=== PATIENT | female | born 2000 | race Caucasian/White ===

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

== ENCOUNTER 2019-04-25 02:09 | Inpatient (IN) | payer OTHER ==
--- NOTE | 2019-04-25 02:13 | PDOC ---
History of Present Illness - General Chief Complaint: Respiratory Distress Stated Complaint: SHORTNESS OF BREATH History Source: Patient Exam Limitations: No Limitations - History of Present Illness Initial Comments: 04/25/19 02:28 Sheela Valdez is a 18yF w PMHx anemia presenting w SOB. Has had dry cough, nasal congestion for last 3 weeks, and post-tussive emesis/SOB for last 5 days. Seen 5d ago at [facility] for SOB, diagnosed w strep, d/c home w amoxicillin prescription. OTC robitussin, family member's albuterol did not improve symptoms. Denies fever, AB pain, urinary/ bowel movement changes. Has never been diagnosed w asthma or hospitalized for SOB even though everyone in family has asthma, recent sick bronchitis contacts Past History - Past Medical History Allergies/Adverse Reactions: Allergies Allergy/AdvReac Type Severity Reaction Status Date / Time No Known Allergies Allergy Verified 04/25/19 02:23 Home Medications: Ambulatory Orders NK [No Known Home Medication] 02/22/18 Anemia: Yes COPD: No Thyroid Disease: No - Reproductive History (#): 1 - Immunization History Td Vaccination: Yes Immunization Up to Date: Yes - Psycho Social/Smoking Cessation Hx Smoking Status: No Smoking History: Never smoked Have you smoked in the past 12 months: No Number of Cigarettes Smoked Daily: 0 Cigars Per Day: 0 Hx Alcohol Use: No Drug/Substance Use Hx: No Substance Use Type: None Hx Substance Use Treatment: No Review of Systems - Review of Systems Constitutional: No: Chills, Fever HEENTM: Yes: Nose Congestion. No: Eye Pain, Nose Pain, Throat Pain, Mouth Pain Respiratory: Yes: Cough, Shortness of Breath Cardiac (ROS): No: Chest Pain, Palpitations, Syncope ABD/GI: Yes: Nausea, Vomiting. No: Abdominal Distended, Constipated, Diarrhea : No: Burning, Dysuria, Discharge, Flank Pain, Hematuria Musculoskeletal: No: Back Pain, Joint Pain Integumentary: No: Bruising, Flushing, Lesions Neurological: No: Headache, Seizure, Tingling, Tremors Psychiatric: No: Anxiety, Depression, Stressors Endocrine: No: Excessive Sweating, Flushing, Intolerance to Cold, Intolerance to Heat Hematologic/Lymphatic: No: Anemia, Blood Clots *Physical Exam - Physical Exam General Appearance: Yes: Nourished, Appropriately Dressed, Moderate Distress HEENT: positive: EOMI, ROSALES, Normal Voice, Nasal Congestion, Rhinorrhea, Hearing Grossly Normal. negative: Scleral Icterus (R), Scleral Icterus (L) Respiratory/Chest: positive: Decreased Breath Sounds (sorin), Wheezing (sorin). negative: Chest Tender, Crackles, Rales, Rhonchi, Stridor Cardiovascular: positive: Regular Rhythm, S1, S2, Tachycardia. negative: Edema , Murmur Gastrointestinal/Abdominal: positive: Normal Bowel Sounds, Flat, Soft. negative : Tender, Organomegaly Extremity: positive: Normal Capillary Refill Integumentary: positive: Normal Color. negative: Rash, Swelling Neurologic: positive: Fully Oriented, Alert, Normal Response, Responsive. negative: Sensory Deficit, Confused, Disoriented ED Treatment Course - LABORATORY CBC & Chemistry Diagram: 04/25/19 02:30 04/25/19 02:30 Medical Decision Making - Medical Decision Making 04/25/19 02:26 CBC CMP HCG CXR CXR shows RLL consolidation, sorin basilar infiltrates concerning for pneumonia tylenol, duonebx3, Mg, azithromycin, rocephin WBC 12, neg HCG --- Sheela Valdez is a 18yF w PMHx anemia presenting w 5d SOB and cough concerning for asthma exacerbation (wheezing) and pneumonia seen on CXR. Not . Given tylenol, duonebx3, Mg, azithromycin, rocephin Admitted med/surg Dr Cohn for asthma exacerbation and pneumonia causing SOB, cough with minimal response to ED medication Discharge - Discharge Information Problems reviewed: Yes Clinical Impression/Diagnosis: Asthma exacerbation Qualifiers: Asthma severity: moderate Asthma persistence: unspecified Qualified Code(s): J45.901 - Unspecified asthma with (acute) exacerbation Pneumonia Qualifiers: Pneumonia type: due to unspecified organism Laterality: right Lung location: lower lobe of lung Qualified Code(s): J18.1 - Lobar pneumonia, unspecified organism Condition: Improved - Follow up/Referral - Patient Discharge Instructions - Post Discharge Activity
[2019-04-25] MEDS ORDERED: methylPREDNISolone NA SUCC 125 MG/2 ML VIAL IVPUSH ONE (02:22)
[2019-04-25] MEDS ORDERED: ALBUTEROL SO4 2.5/IPRATROPIUM 0.5 INH SOL 3 ML VIAL.NEB. NEB ONE ×4 (02:22→07:21)
[2019-04-25] MEDS ORDERED: methylPREDNISolone NA SUCC 125 MG/2 ML VIAL ONE (02:25)
[2019-04-25] MEDS ORDERED: CEFTRIAXONE 1 GM in DEXTROSE 5%-WATER - 50 ML IVPB ONE (02:28)
[2019-04-25] MEDS ORDERED: AZITHROMYCIN IVPB 500 MG in DEXTROSE 5%-WATER - 250 ML IVPB ONE (02:28)
[2019-04-25 02:35] LABS: BASO % 0.5 % (0-2.0); EOS % 1.7 % (0-4.5); HEMATOCRIT 39.3 % (32.4-45.2); HEMOGLOBIN 13.1 GM/dL (10.7-15.3); LYMPH % 35.7 % (8-40); MCH 30.2 pg (25.7-33.7); MCHC 33.2 g/dl (32.0-36.0); MEAN CELL VOLUME 91.1 fl (80-96); MEAN PLT VOLUME 7.2 fl (7.5-11.1); NEUT % 54.1 % (42.8-82.8); PLATELET COUNT 322 K/MM3 (134-434); RBC 4.32 M/mm3 (3.60-5.2); RDW 13.1 % (11.6-15.6); WHITE BLOOD COUNT 12.6 K/mm3 (4.0-10.0)
[2019-04-25] MEDS ORDERED: AZITHROMYCIN IVPB 500 MG/250 ML BAG IVPB ONE (02:37)
[2019-04-25] MEDS ORDERED: CEFTRIAXONE 1 GM/50 ML BAG ONE (02:37)
[2019-04-25] MEDS ORDERED: MAGNESIUM SULF 50% (8.12 MEQ/2 ML-1 GM VIAL) IVPB ONE (03:02)
[2019-04-25 03:05] LABS: ALBUMIN 4.1 g/dl (3.4-5.0); BILIRUBIN,TOTAL 0.2 mg/dL (0.2-1); BLOOD UREA NITROGEN 13.1 mg/dL (7-18); CREATININE 0.8 mg/dL (0.55-1.3); POTASSIUM 3.8 mmol/L (3.5-5.1); TOT PROT 7.8 g/dl (6.4-8.2)
[2019-04-25] MEDS ORDERED: MAGNESIUM SULF 50% (8.12 MEQ/2 ML-1 GM VIAL) ONE (03:06)
[2019-04-25] MEDS ORDERED: guaiFENesin/CODEINE 10 ML UNIT-DOSE CUPS PO ONE (03:17)
[2019-04-25] MEDS ORDERED: guaiFENesin/CODEINE 5 ML UNIT-DOSE CUPS PO ONE (03:26)
[2019-04-25] MEDS ORDERED: RACEPINEPHRINE IH SOL 2.25% 11.25 MG/0.5 ML VIAL IH ONE (03:26)
--- NOTE | 2019-04-25 03:29 | PDOC ---
Attending Attestation - Resident Resident Name: Arnulfo Valadez - ED Attending Attestation I have performed the following: I have examined & evaluated the patient, The case was reviewed & discussed with the resident, I agree w/resident's findings & plan - HPI HPI: 04/25/19 03:27 Pt comes with cough intractable; chest wall pain; inability to breathe esily; bronchitis that pt's mom have to pt's son, and now she has the same. Pt will be admitted to the hospital. She looks unwell and she has wheeze throughout the right lug and patchy on left. - Physicial Exam PE: 04/25/19 03:28 Pt has wheeze throughout lungs Febrile Pt looks unwell and Chest wall muscle painexhausted. - Medical Decision Making 04/25/19 03:29 Admit patient after CXR 04/25/19 05:11 She received abx and meds for cough and for wheeze. nebs, racemic epi, robitussin AC, etc etc.
[2019-04-25] MEDS ORDERED: RACEPINEPHRINE IH SOL 2.25% 11.25 MG/0.5 ML VIAL NEB ONE (04:12)
[2019-04-25] MEDS ORDERED: diphenhydrAMINE HCL 25 MG CAPSULE (FP) PO ONE ×2 (05:09→05:10)
[2019-04-25] MEDS ORDERED: ALBUTEROL SO4 0.083% IH SOL 2.5 MG/3 ML VIAL.NEB. NEB PRN (06:16)
--- NOTE | 2019-04-25 06:16 | PN ---
Teaching Attending Note Name of Resident: Breanne Goldstein ATTENDING PHYSICIAN STATEMENT I saw and evaluated the patient. I reviewed the resident's note and discussed the case with the resident. I agree with the resident's findings and plan as documented. SUBJECTIVE: 18-year-old woman complained of 3 weeks of increasing shortness of breath, chest tightness, which started spontaneously. She denied any significant fevers However mentioned that her child is sick. Her and mother smoke and she is around them at times. Patient mentions that several family members have been diagnosed with asthma. She was seen at [facility] on and was suspected to have strep throat and given a course of Augmentin which she said she has been taking. OBJECTIVE: Last Vital Signs Temp Pulse Resp BP Pulse Ox 98.3 F 100 H 20 113/76 100 04/25/19 02:20 04/25/19 05:21 04/25/19 02:20 04/25/19 05:21 04/25/19 05:21 GENERAL: Well developed, well nourished. Awake and alert. No acute distress, speaks in full sentences HEENT: Normocephalic, atraumatic. PERRLA, EOMI. No conjunctival pallor. Sclera are non- icteric. Moist mucous membranes. Oropharynx is clear. NECK: Supple. Full ROM. No JVD. Carotid pulses 2+ and symmetric, without bruits. No thyromegaly. No lymphadenopathy. CARDIOVASCULAR: taCHY. No murmurs, rubs, or gallops. Distal pulses are 2+ and symmetric. PULMONARY: + respiratory distress. b/l diffuse wheezing ABDOMINAL: Soft. Non-tender. Non-distended. No rebound or guarding. No organomegaly. Normoactive bowel sounds. MUSCULOSKELETAL Normal range of motion at all joints. No bony deformities or tenderness. No CVA tenderness. EXTREMITIES: No cyanosis. No clubbing. No edema. No calf tenderness. SKIN: Warm and dry. Normal capillary refill. No rashes. No jaundice. PSYCHIATRIC: Cooperative. Good eye contact. Appropriate mood and affect. Abnormal Lab Results 04/25/19 04/25/19 02:30 02:30 WBC 12.6 H MPV 7.2 L Random Glucose 120 H AST 14 L Imaging reviewed ASSESSMENT AND PLAN: 18-year-old woman with newly diagnosed asthma. Shortness of breath, coughing, wheezing, chest tightness all support clinical diagnosis.Her current attack might have been caused by a URI or pharyngitis or exposure to tobacco smoke by her family member.Counseled patient on nature of asthma and avoidance of specific exacerbating factors. She had blood gas which did not show any CO2 retention. She demonstrated some improvement to systemic steroids and bronchodilators and is stable for admission to [facility]. Admit to [facility] ekg Methylprednisolone 40mg IV every 6 hours Protonix 40 mg daily while on systemic steroids for GI prophylaxis Bronchodilators every 4 hours Azithromycin 5-day course Antitussives visual educator Would start on inhaled corticosteroid while inpatient Pulmonary evaluation Peak flow monitoring Outpatient pulmonary function test referral DVT prophylaxis with SCDs
[2019-04-25] MEDS ORDERED: PROCHLORPERAZINE INJECTION 10 MG/2 ML VIAL IVPB PRN (06:22)
[2019-04-25] MEDS ORDERED: ALBUTEROL SO4 2.5/IPRATROPIUM 0.5 INH SOL 3 ML VIAL.NEB. NEB PRN (06:27)
--- NOTE | 2019-04-25 06:31 | HP ---
CHIEF COMPLAINT: SOB PCP: unnknown HISTORY OF PRESENT ILLNESS: 18 y/o F with PMH of anemia presented to the ED because of SOB. Per Patient, she has been having difficulty breathing for the past 3 weeks since she caught a cold from her mother and son who were recently sick with Bronchitis and PNA. When SOB did not improve, she went to [facility] where they diagnosed her with PNA and discharged her on a course of augmentin (was scheduled to take last dose friday). Pt also have been experiencing nausea accompanied by NBNB vomiting consistently with food then eventually on empty stomach for the last 3 days. Pt also complaind of a pressure like chest pain, non radiating and intermittent in nature rating 8/10 in severity. Codeine temporarely relieved the pain but deep inspiration makes it worse and induces cough spells. Pt recently visited [place] a few weeks ago. ER course was notable for: (1)CBC remarkable for leukocytosis, BMP (2)EKG, CXR (3) course of solumedrol, duonebs, mgso4, epi, rocephin and azythro Recent Travel: [place] PAST MEDICAL HISTORY: as above PAST SURGICAL HISTORY: C section FAMILY HISTORY: immediate family has asthma including son Social History: second hand smoke Smoking: baby juan carlos smokes heavily. Alcohol: denies Drugs: denies Allergies No Known Allergies Allergy (Verified 04/25/19 02:23) HOME MEDICATIONS: Home Medications Medication Instructions Recorded NK [No Known Home Medication] 02/22/18 REVIEW OF SYSTEMS CONSTITUTIONAL: loss of appetite Absent: fever, chills, diaphoresis, generalized weakness, malaise, weight change HEENT: nasal congestion Absent: rhinorrhea , throat pain, throat swelling, difficulty swallowing, mouth swelling, ear pain, eye pain, visual changes CARDIOVASCULAR: chest pain Absent: syncope, palpitations, irregular heart rate, lightheadedness, peripheral edema RESPIRATORY: cough, shortness of breath,wheezing Absent: dyspnea with exertion, orthopnea, stridor, hemoptysis GASTROINTESTINAL:nausea, vomiting Absent: abdominal pain, abdominal distension , diarrhea, constipation, melena, hematochezia GENITOURINARY: Absent: dysuria, frequency, urgency, hesitancy, hematuria, flank pain, genital pain MUSCULOSKELETAL: Absent: myalgia, arthralgia, joint swelling, back pain, neck pain SKIN: Absent: rash, itching, pallor HEMATOLOGIC/IMMUNOLOGIC: Absent: easy bleeding, easy bruising, lymphadenopathy, frequent infections ENDOCRINE: Absent: unexplained weight gain, unexplained weight loss, heat intolerance, cold intolerance NEUROLOGIC: Absent: headache, focal weakness or paresthesias, dizziness, unsteady gait, seizure, mental status changes, bladder or bowel incontinence PSYCHIATRIC: Absent: anxiety, depression, suicidal or homicidal ideation, hallucinations. PHYSICAL EXAMINATION Vital Signs - 24 hr 04/25/19 04/25/19 04/25/19 02:20 03:02 04:18 Temperature 98.3 F Pulse Rate 112 H Pulse Rate [ Radial] Respiratory 20 Rate Blood Pressure 127/81 Blood Pressure [Left Arm] O2 Sat by Pulse 100 100 100 Oximetry (%) 04/25/19 05:21 Temperature Pulse Rate Pulse Rate [ 100 H Radial] Respiratory Rate Blood Pressure Blood Pressure 113/76 [Left Arm] O2 Sat by Pulse 100 Oximetry (%) GENERAL: Awake, alert, and fully oriented, in mod distress. HEAD: Normal with no signs of trauma. EYES: Pupils equal, round and reactive to light, extraocular movements intact, sclera anicteric, conjunctiva clear. No lid lag. EARS, NOSE, THROAT: nares patent but boggy from congestion, oropharynx clear without exudates. Moist mucous membranes. NECK: Normal range of motion, supple without lymphadenopathy, JVD, or masses. LUNGS: Breath sounds equal, clear to auscultation bilaterally. diffuse wheezes, and no crackles. No accessory muscle use. HEART: Regular rate and rhythm, normal S1 and S2 without murmur, rub or gallop. ABDOMEN: Soft, nontender, not distended, normoactive bowel sounds, no guarding, no rebound, no masses. No hepatomegaly or splenomegaly. MUSCULOSKELETAL: Normal range of motion at all joints. No bony deformities or tenderness. No CVA tenderness. UPPER EXTREMITIES: 2+ pulses, warm, well-perfused. No cyanosis. No clubbing. No peripheral edema. LOWER EXTREMITIES: 2+ pulses, warm, well-perfused. No calf tenderness. No peripheral edema. PSYCHIATRIC: Cooperative. Good eye contact. Appropriate mood and affect. SKIN: Warm, dry, normal turgor, no rashes or lesions noted, normal capillary refill. Laboratory Results - last 24 hr 04/25/19 04/25/19 04/25/19 02:30 02:30 02:30 WBC 12.6 H RBC 4.32 Hgb 13.1 Hct 39.3 MCV 91.1 MCH 30.2 MCHC 33.2 RDW 13.1 Plt Count 322 MPV 7.2 L Absolute Neuts (auto) 6.8 Neutrophils % 54.1 D Lymphocytes % 35.7 D Monocytes % 8.0 D Eosinophils % 1.7 D Basophils % 0.5 Nucleated RBC % 0 Sodium 141 Potassium 3.8 Chloride 107 Carbon Dioxide 23 Anion Gap 11 BUN 13.1 Creatinine 0.8 Est GFR (CKD-EPI)AfAm 123.87 Est GFR (CKD-EPI)NonAf 106.88 Random Glucose 120 H Calcium 9.0 Total Bilirubin 0.2 AST 14 L ALT 15 Alkaline Phosphatase 106 Total Protein 7.8 Albumin 4.1 Serum , Qual Negative ASSESSMENT/PLAN: 18 y/o F with PMH of anemia presented to the ED because of SOB admitted for acute asthma with exacerbation. Asthma exacerbation 2/2 recent URI solumedrol 40 Q6H. protonix 40 daily to prevent steroid induced stress ulcers duonebs Q4H oxygen NC 2L albuterol PRN zithromax pack compazine for nausea and vomiting. pending EKG flu swab Peak flow ordered respiratory therapist will obtain and document for interval changes. will educate pt about inhaler use; will add Qvair once done. also educated the pt about asthma, second hand smokes as additional culprit Anemia Hb 13.1 stable monitor DVT SCDs. pt young and ambulatory Visit type - Emergency Visit Emergency Visit: Yes ED Registration Date: 04/25/19 Care time: The patient presented to the Emergency Department on the above date and was hospitalized for further evaluation of their emergent condition. - New Patient This patient is new to me today: Yes Date on this admission: 04/25/19 - Critical Care Critical Care patient: No ATTENDING PHYSICIAN STATEMENT I saw and evaluated the patient. I reviewed the resident's note and discussed the case with the resident. I agree with the resident's findings and plan as documented. SUBJECTIVE: OBJECTIVE: ASSESSMENT AND PLAN:
[2019-04-25] MEDS ORDERED: methylPREDNISolone NA SUCC 40 MG/1 ML VIAL ONE (06:45)
[2019-04-25] MEDS: methylPREDNISolone NA SUCC 40 MG/1 ML VIAL IVPUSH SCH ×4 (06:53→20:38)
[2019-04-25] MEDS ORDERED: IBUPROFEN 400 MG TABLET (FP) PO ONE ×2 (07:42→07:46)
[2019-04-25] MEDS ORDERED: PANTOPRAZOLE SODIUM 40 MG VIAL IVPUSH SCH (10:00)
--- NOTE | 2019-04-25 10:38 | EKG ---
Test Reason : Blood Pressure : / mmHG Vent. Rate : 107 BPM Atrial Rate : 107 BPM P-R Int : 144 ms QRS Dur : 084 ms QT Int : 340 ms P-R-T Axes : 063 048 032 degrees QTc Int : 453 ms SINUS TACHYCARDIA OTHERWISE NORMAL ECG NO PREVIOUS ECGS AVAILABLE Confirmed by MD ANASTACIA, FRANCES ([id number]) on 04/25/2019 10:38:03 AM Referred By: Confirmed By:FRANCES GALAVIZ MD
--- NOTE | 2019-04-25 10:52 | PN ---
Physical Exam: SUBJECTIVE: Patient seen and examined at the bedside. feels better, but feels as though she is not getting enough air. assured her we will put her on 2 liters of nasal cannula. OBJECTIVE: apply 2 liters on nc and monitor oxygen status pulmonary consult scheduled duonebs incentive spirometer negative d dimer imaging: chest xray: limited assessment of lungs 2/2 to poor inspiratory effort. Patient is a 18 year old female with a past medical hx of anemia presented to the ED on 04/25/19 secondary to shortness of breath. She began to have shortness of breath for past 3 weeks and reports sick contacts at home. She was seen at [facility] and was diagnosed with pneumonia and was d/c on augmentin. She reports compliance with the augmentin. Pt also complained of a pressure like chest pain with coughing, non-radiating and intermittent, codeine temporarily relieved the pain but deep inspiration makes it worse and induces cough spells. Pt recently visited [place] a few weeks ago. Vital Signs Period Temp Pulse Resp BP Sys/Crowder Pulse Ox Last 24 Hr 98.3 F 100-120 20-20 113-127/76-89 97-100 GENERAL: The patient is awake, alert, and fully oriented, in no acute distress. HEAD: Normal with no signs of trauma. EYES: PERRL, extraocular movements intact, sclera anicteric, conjunctiva clear. No ptosis. ENT: Ears normal, nares patent, oropharynx clear without exudates, moist mucous membranes. NECK: Trachea midline, full range of motion, supple. LUNGS: expiratory wheezing, congestion. tolerating room air with stable oxygen , but feels short of breath, will apply oxygen, spirometer. re-image HEART: Regular rate and rhythm ABDOMEN: Soft, nontender, nondistended, normoactive bowel sounds, no guarding, no rebound, no hepatosplenomegaly, no masses. NEUROLOGICAL: Normal speech, gait not observed. PSYCH: Normal mood, normal affect. SKIN: Warm, dry, normal turgor, no rashes or lesions noted Laboratory Results - last 24 hr 04/25/19 04/25/19 04/25/19 02:30 02:30 02:30 WBC 12.6 H RBC 4.32 Hgb 13.1 Hct 39.3 MCV 91.1 MCH 30.2 MCHC 33.2 RDW 13.1 Plt Count 322 MPV 7.2 L Absolute Neuts (auto) 6.8 Neutrophils % 54.1 D Lymphocytes % 35.7 D Monocytes % 8.0 D Eosinophils % 1.7 D Basophils % 0.5 Nucleated RBC % 0 Sodium 141 Potassium 3.8 Chloride 107 Carbon Dioxide 23 Anion Gap 11 BUN 13.1 Creatinine 0.8 Est GFR (CKD-EPI)AfAm 123.87 Est GFR (CKD-EPI)NonAf 106.88 Random Glucose 120 H Calcium 9.0 Total Bilirubin 0.2 AST 14 L ALT 15 Alkaline Phosphatase 106 Total Protein 7.8 Albumin 4.1 Serum , Qual Negative Active Medications Generic Name Dose Route Start Last Admin Trade Name Freq PRN Reason Stop Dose Admin Albuterol Sulfate 1 amp 04/25/19 06:16 Ventolin 0.083% Nebulizer Soln - NEB Q6H PRN SHORT OF BREATH/WHEEZING Albuterol/Ipratropium 1 amp 04/25/19 06:27 04/25/19 07:25 Duoneb - NEB 1 amp Q4H PRN Administration SHORTNESS OF BREATH Azithromycin 250 mg 04/26/19 10:00 Zithromax - PO 04/29/19 10:01 DAILY BAYLEE Methylprednisolone Sodium Succinate 40 mg 04/25/19 07:00 04/25/19 07:00 Solu-Medrol - IVPUSH 40 mg Q6H-IV BAYLEE Administration Pantoprazole Sodium 40 mg 04/25/19 10:00 Protonix Iv IVPUSH DAILY BAYLEE Prochlorperazine Edisylate 10 mg 04/25/19 06:22 Compazine Injection - IVPB Q6H PRN NAUSEA AND/OR VOMITING ASSESSMENT/PLAN: Problem List - Problems (1) Pneumonia Assessment/Plan: chest xray with poor quality secondary to poor inspiratory effort unable to rule out pneumonia, but has elevated WBC and was recently on antibiotics for pnemonia. Pulmonary consulted and started on ceftiraxone. patient also on azithromycin. repeat chest xray, if unble to obtain acceptable imaging, will order chest ct to further evaluate recent travel to out of state, but d dimer is not elevated ID consulted for further recommendations monitor airway, vitals, labs. apply 2 liters as needed on solumedrol, duonebs scheduled, oxygen 2 liters. Code(s): J18.9 - PNEUMONIA, UNSPECIFIED ORGANISM Qualifiers: Pneumonia type: due to unspecified organism Laterality: right Lung location: lower lobe of lung Qualified Code(s): J18.1 - Lobar pneumonia, unspecified organism (2) Asthma exacerbation Assessment/Plan: systemic steroids for GI prophylaxis Bronchodilators every 4 hours Azithromycin and ceftriaxone Antitussives ordered Pulmonary following Peak flow monitoring Outpatient pulmonary function test referral DVT prophylaxis with SCDs Code(s): J45.901 - UNSPECIFIED ASTHMA WITH (ACUTE) EXACERBATION Qualifiers: Asthma severity: moderate Asthma persistence: unspecified Qualified Code( s): J45.901 - Unspecified asthma with (acute) exacerbation (3) Shortness of breath Assessment/Plan: stable on room air, add 2 liters as needed Code(s): R06.02 - SHORTNESS OF BREATH (4) Prophylactic measure Assessment/Plan: fen tolerating po monitor electrolytes regular diet full code Code(s): Z29.9 - ENCOUNTER FOR PROPHYLACTIC MEASURES, UNSPECIFIED Visit type - Emergency Visit Emergency Visit: Yes ED Registration Date: 04/25/19 Care time: The patient presented to the Emergency Department on the above date and was hospitalized for further evaluation of their emergent condition. - New Patient This patient is new to me today: Yes Date on this admission: 04/25/19 - Critical Care Critical Care patient: No - Discharge Referral Referred to [facility] No
--- NOTE | 2019-04-25 14:59 | PN ---
Progress Note (short form) - Note Progress Note: PULMONARY CONSULTATION DICTATED 04/25/19 IMP DYSPNEA PNEUMONIA ? ASTHMA STREP THROAT PLAN IV STEROIDS ABX O2 NEEDED INHALED BRONCHODILATORS F/U CHEST-RAY PA + LATERAL,IF INCONCLUSIVE WILL OBTAIN CHEST CT CULTURES URINARY ANTIGENS COUGH MEDS PFTS OUTPATIENT DR CALHOUN Problem List - Problems (1) Pneumonia Code(s): J18.9 - PNEUMONIA, UNSPECIFIED ORGANISM Qualifiers: Pneumonia type: due to unspecified organism Laterality: right Lung location: lower lobe of lung Qualified Code(s): J18.1 - Lobar pneumonia, unspecified organism (2) Influenza-like illness Code(s): R69 - ILLNESS, UNSPECIFIED (3) Nausea & vomiting Code(s): R11.2 - NAUSEA WITH VOMITING, UNSPECIFIED (4) Pharyngitis Code(s): J02.9 - ACUTE PHARYNGITIS, UNSPECIFIED Qualifiers: Pharyngitis/tonsillitis etiology: unspecified etiology Qualified Code(s): J02.9 - Acute pharyngitis, unspecified (5) Sore throat Code(s): J02.9 - ACUTE PHARYNGITIS, UNSPECIFIED (6) Shortness of breath Code(s): R06.02 - SHORTNESS OF BREATH
[2019-04-25] MEDS ORDERED: DEXTROSE 5%-WATER - 50 ML IVPB ONE (15:33)
[2019-04-25] MEDS ORDERED: cefTRIAXone SODIUM 1 GM VIAL ONE (15:33)
[2019-04-25] MEDS: CEFTRIAXONE 1 GM in DEXTROSE 5%-WATER - 50 ML IVPB SCH (15:38)
[2019-04-25] MEDS: guaiFENesin/D-METHORPHAN HB 10 ML UNIT-DOSE CUPS PO PRN ×2 (16:59→20:51)
--- NOTE | 2019-04-25 17:01 | CONS ---
DATE OF CONSULTATION: 04/25/2019 REFERRING PROVIDER: LUDIN Lara The patient is a 18-year-old female, without any significant past medical history, admitted to [facility] with increasing shortness of breath, cough, nasal congestion. The patient states approximately 3 weeks ago she started developing cough, nasal congestion. Apparently, at the time, her child and her family members were ill with pneumonia. She has had persistent shortness of breath and cough. Apparently 5 days ago she went to [facility] ER and was diagnosed with streptococcus and discharged home on amoxicillin. She was compliant with the medication but she started developing increasing shortness of breath, cough, and occasional wheezing. She denies any history of asthma, but states that several family members do have asthma. She denies any history of tobacco use. Of note, she recently traveled to [place] and returned a few days ago. She is also complaining of cough and posttussive emesis. She denies any hemoptysis. Denies any chest pain although complains of chest tightness. In the emergency room, she was found on x-ray to have a possible left lower lobe pneumonia. She was started on antibiotic therapy. Past medical history, again, includes history of anemia. SOCIAL HISTORY: No occupational exposures. Employed as a battery service technician. One child at age 1 alive and well. REVIEW OF SYSTEMS: Positive cough, positive shortness of breath, positive congestion. No fever, no chills, no hemoptysis, no abdominal pain. Positive nausea. Positive sore throat. Positive wheezing. Current medications include DuoNeb, Solu-Medrol, Zithromax, Compazine p.r.n., albuterol, DuoNeb, and Protonix. PHYSICAL EXAMINATION: General: The patient is a well-developed, well-nourished female, awake, alert, in no acute distress. Vital Signs: She is afebrile. Blood pressure 111/57. Respiratory rate 20. O2 saturation is 98% on room air. HEENT: Normocephalic, atraumatic. Neck: Supple. Heart: Regular, S1, S2. Chest: She has a few scattered bilateral rhonchi, occasional scattered wheezes. Abdomen: Soft. Bowel sounds are positive. Extremities: No cyanosis, edema. LABORATORY DATA: BUN is 13, creatinine 0.8, D-dimer is less than 215. WBC is 12.6, hemoglobin 13.1, hematocrit 39.3, platelet count 322,000. Chest x-ray: Poor inspiratory effort, patchy infiltrate in left base. IMPRESSION: 1. Cough, chest congestion, dyspnea, likely pneumonia. 2. Acute asthmatic bronchitis. 3. History of anemia. PLAN: IV steroids, inhaled bronchodilators, antibiotics, supplemental O2, monitor peak flow, obtain followup chest x-ray PA and lateral. If repeat film is inconclusive, will obtain CT scan of the chest. Obtain cultures, Legionella, urinary antigens, cough medications. Also PFT as outpatient. ROMAINE CALHOUN M.D. [id number]
[2019-04-25] MEDS: ALBUTEROL SO4 0.083% IH SOL 2.5 MG/3 ML VIAL.NEB. NEB SCH (19:50)
[2019-04-25] MEDS: ACETAMINOPHEN 325 MG TABLET (FP) PO PRN (20:46)
[2019-04-26] MEDS: methylPREDNISolone NA SUCC 40 MG/1 ML VIAL IVPUSH SCH ×4 (03:05→21:38)
[2019-04-26] MEDS: ALBUTEROL SO4 0.083% IH SOL 2.5 MG/3 ML VIAL.NEB. NEB SCH (07:35)
[2019-04-26 07:44] LABS: BASO % 0.1 % (0-2.0); HEMATOCRIT 36.4 % (32.4-45.2); HEMOGLOBIN 12.2 GM/dL (10.7-15.3); MCH 30.4 pg (25.7-33.7); MCHC 33.4 g/dl (32.0-36.0); MEAN CELL VOLUME 91.1 fl (80-96); MEAN PLT VOLUME 7.2 fl (7.5-11.1); MONO % 2.8 % (3.8-10.2); NEUT % 92.1 % (42.8-82.8); PLATELET COUNT 307 K/MM3 (134-434); RDW 13.8 % (11.6-15.6); WHITE BLOOD COUNT 24.8 K/mm3 (4.0-10.0)
[2019-04-26 08:11] LABS: CALCIUM 9.1 mg/dL (8.5-10.1); CREATININE 0.7 mg/dL (0.55-1.3); MAGNESIUM 2.5 mg/dL (1.8-2.4); PHOSPHOROUS 3.9 mg/dL (2.5-4.9); POTASSIUM 4.2 mmol/L (3.5-5.1)
[2019-04-26] MEDS ORDERED: ALBUTEROL SO4 0.083% IH SOL 2.5 MG/3 ML VIAL.NEB. NEB PRN (08:36)
[2019-04-26] MEDS ORDERED: SODIUM CHLORIDE 500 ML IV STA (09:10)
--- NOTE | 2019-04-26 09:13 | PN ---
Physical Exam: SUBJECTIVE: Patient seen and examined at the bedside. reports coughing and muscular chest pain with coughing. seen at the bedside for increased heart rate in the 120s OBJECTIVE: elevated heart rate in the setting of allbuterol, coughing applied 2 liters of nasal cannula for increased work of breathing and encouraged pursed lip breathing with improving of heart rate. will also give 500cc ivf x 1 dose. continue to monitor. pulm consulted and following. does not look distressed on exam, she is smiling and telling me she wants to go back to work soon. works at [employer] as a [employer]. incentive spirometer encouraged negative d dimer, no suspicion of PE. patient has implantable control in arm. wbc increased, likely in setting of steriods. on ceftriaxone and azithromycin. ID consulted for further recommendations. Patient is a 18 year old female with a past medical hx of anemia presented to the ED on 04/25/19 secondary to shortness of breath. She began to have shortness of breath for past 3 weeks and reports sick contacts at home. She was seen at [facility] and was diagnosed with pneumonia and was d/c on augmentin. She reports compliance with the augmentin. Pt also complained of a pressure like chest pain with coughing, non-radiating and intermittent, codeine temporarily relieved the pain but deep inspiration makes it worse and induces cough spells. Pt recently visited [place] a few weeks ago. imaging: chest xray: limited assessment of lungs 2/2 to poor inspiratory effort. repeat chest xray pending: Vital Signs Period Temp Pulse Resp BP Sys/Crowder Pulse Ox Last 24 Hr 97.8 F-98.8 F 92-124 18-20 111-124/57-98 98-98 GENERAL: The patient is awake, alert, and fully oriented, in no acute distress , continue to have coughing spells, but improving since yesterday HEAD: Normal with no signs of trauma. EYES: PERRL, extraocular movements intact, sclera anicteric, conjunctiva clear. No ptosis. ENT: Ears normal, nares patent, oropharynx clear without exudates, moist mucous membranes. NECK: Trachea midline, full range of motion, supple. LUNGS: expiratory wheezing, less congestion. tolerating room air with stable oxygen, applied 2 liters for comfort and coughing. HEART: sinus tach 120s, s/p allbuterol. monitor. ekg ordered ABDOMEN: Soft, nontender, nondistended, normoactive bowel sounds, no guarding, no rebound, no hepatosplenomegaly, no masses. NEUROLOGICAL: Normal speech, gait not observed. PSYCH: Normal mood, normal affect. SKIN: Warm, dry, normal turgor, no rashes or lesions noted Laboratory Results - last 24 hr 04/25/19 04/26/19 04/26/19 12:55 07:00 07:00 WBC 24.8 H RBC 4.00 Hgb 12.2 Hct 36.4 MCV 91.1 MCH 30.4 MCHC 33.4 RDW 13.8 Plt Count 307 MPV 7.2 L Absolute Neuts (auto) 22.9 H Neutrophils % 92.1 H D Lymphocytes % 5.0 L D Monocytes % 2.8 L Eosinophils % 0.0 D Basophils % 0.1 Nucleated RBC % 0 D-Dimer < 215 Sodium 140 Potassium 4.2 Chloride 108 H Carbon Dioxide 24 Anion Gap 9 BUN 16.0 Creatinine 0.7 Est GFR (CKD-EPI)AfAm 145.58 Est GFR (CKD-EPI)NonAf 125.60 Random Glucose 154 H Calcium 9.1 Phosphorus 3.9 Magnesium 2.5 H Active Medications Generic Name Dose Route Start Last Admin Trade Name Freq PRN Reason Stop Dose Admin Acetaminophen 650 mg 04/25/19 16:48 04/25/19 20:46 Tylenol - PO 650 mg Q6H PRN Administration PAIN LEVEL 1 - 3 Albuterol Sulfate 1 amp 04/26/19 08:36 Ventolin 0.083% Nebulizer Soln - NEB Q6H PRN ASTHMA Albuterol/Ipratropium 1 amp 04/25/19 06:27 04/25/19 07:25 Duoneb - NEB 1 amp Q4H PRN Administration SHORTNESS OF BREATH Azithromycin 250 mg 04/26/19 10:00 Zithromax - PO 04/29/19 10:01 DAILY BAYLEE Guaifenesin 10 ml 04/25/19 16:37 04/25/19 20:51 Robitussin Dm - PO 10 ml Q4H PRN Administration COUGH Ceftriaxone Sodium 1 gm/ 50 mls @ 200 mls/hr 04/25/19 15:00 04/25/19 15:38 Dextrose IVPB 200 mls/hr DAILY BAYLEE Administration Protocol Sodium Chloride 500 mls @ 500 mls/hr 04/26/19 09:10 Normal Saline - IV 04/26/19 10:09 ASDIR STA Methylprednisolone Sodium Succinate 40 mg 04/25/19 07:00 04/26/19 03:05 Solu-Medrol - IVPUSH 40 mg Q6H-IV BAYLEE Administration Pantoprazole Sodium 40 mg 04/26/19 10:00 Protonix - PO DAILY BAYLEE Prochlorperazine Edisylate 10 mg 04/25/19 06:22 Compazine Injection - IVPB Q6H PRN NAUSEA AND/OR VOMITING ASSESSMENT/PLAN: Problem List - Problems (1) Pneumonia Assessment/Plan: chest xray with poor quality secondary to poor inspiratory effort unable to rule out pneumonia, but has elevated WBC and was recently on antibiotics for pnemonia. WBC elevated to 28k today, patient on steriods but acute infection cannot be ruled out. will culture. Pulmonary consulted and started on ceftiraxone. patient also on azithromycin. repeat chest xray, if unable to obtain acceptable imaging, will order chest ct to further evaluate recent travel to out of state, but d dimer is not elevated ID consulted for further recommendations monitor airway, vitals, labs. apply 2 liters for now for increased coughing and elevated heart rate on solumedrol, duonebs scheduled, oxygen 2 liters. Code(s): J18.9 - PNEUMONIA, UNSPECIFIED ORGANISM Qualifiers: Pneumonia type: due to unspecified organism Laterality: right Lung location: lower lobe of lung Qualified Code(s): J18.1 - Lobar pneumonia, unspecified organism (2) Asthma exacerbation Assessment/Plan: systemic steroids with GI prophylaxis of protonix Bronchodilators every 4 hours prn Azithromycin and ceftriaxone Antitussives ordered Pulmonary following Peak flow monitoring Outpatient pulmonary function test referral DVT prophylaxis with SCDs Code(s): J45.901 - UNSPECIFIED ASTHMA WITH (ACUTE) EXACERBATION Qualifiers: Asthma severity: moderate Asthma persistence: unspecified Qualified Code( s): J45.901 - Unspecified asthma with (acute) exacerbation (3) Shortness of breath Assessment/Plan: stable on room air, add 2 liters as needed Code(s): R06.02 - SHORTNESS OF BREATH (4) Prophylactic measure Assessment/Plan: fen tolerating po monitor electrolytes regular diet gi protection with protonix while on systemic steriods. full code Code(s): Z29.9 - ENCOUNTER FOR PROPHYLACTIC MEASURES, UNSPECIFIED Visit type - Emergency Visit Emergency Visit: Yes ED Registration Date: 04/25/19 Care time: The patient presented to the Emergency Department on the above date and was hospitalized for further evaluation of their emergent condition. - New Patient This patient is new to me today: No - Critical Care Critical Care patient: No - Discharge Referral Referred to [facility] Med P.C.: No
--- NOTE | 2019-04-26 09:37 | CON.ID ---
Consult Consult Specialty:: infectious diseases Referred by:: Fadia Reason for Consultation:: sob,leukocytosis,pneumonia - History of Present Illness Chief Complaint: sob,weakness History of Present Illness: 18 y/o F with PMH of anemia admitted because of SOB. Per Patient, she has been having difficulty breathing for the past 3 weeks since she caught a cold from her mother and son who were recently sick with Bronchitis and PNA. When SOB did not improve, she went to [facility] where they diagnosed her with PNA and discharged her on a course of augmentin . Pt also have been experiencing nausea accompanied by NBNB vomiting consistently with food then eventually on empty stomach for the last 3 days. Pt also complained of a pressure like chest pain, non radiating and intermittent in nature rating 8/10 in severity. patient mentions that in between she was feeling a little better and she visited [place] currently patient still is not feeling too good denies smoking vaping or drug abuse - History Source History Provided By: Patient Limitations to Obtaining History: No Limitations - Past Medical History ...LMP: 04/08/19 ...: No - Alcohol/Substance Use Hx Alcohol Use: No - Smoking History Smoking history: Former smoker Have you smoked in the past 12 months: No Aproximately how many cigarettes per day: 0 Home Medications - Allergies Allergies/Adverse Reactions: Allergies Allergy/AdvReac Type Severity Reaction Status Date / Time No Known Allergies Allergy Verified 04/25/19 02:23 - Home Medications Home Medications: Ambulatory Orders Etonogestrel [Nexplanon] 68 mg SQ DAILY 04/25/19 Review of Systems - Review of Systems Constitutional: reports: Weakness Eyes: reports: No Symptoms HENT: reports: No Symptoms Neck: reports: No Symptoms Cardiovascular: reports: No Symptoms Respiratory: reports: Cough, SOB, SOB on Exertion Gastrointestinal: reports: No Symptoms Genitourinary: reports: No Symptoms Musculoskeletal: reports: No Symptoms Integumentary: reports: No Symptoms Neurological: reports: No Symptoms Endocrine: reports: No Symptoms Hematology/Lymphatic: reports: No Symptoms Psychiatric: reports: No Symptoms Physical Exam Vital Signs: Vital Signs Temperature 98.7 F 04/26/19 08:43 Pulse Rate 124 H 04/26/19 08:43 Respiratory Rate 18 04/26/19 08:44 Blood Pressure 124/98 04/26/19 08:43 O2 Sat by Pulse Oximetry (%) 98 04/26/19 08:44 Constitutional: Yes: Well Nourished, Calm, Mild Distress HENT: Yes: Atraumatic, Normocephalic Neck: Yes: Supple, Trachea Midline Cardiovascular: Yes: Regular Rate and Rhythm Respiratory: Yes: Regular, On Nasal O2, Rhonchi, Other Gastrointestinal: Yes: Normal Bowel Sounds, Soft Musculoskeletal: Yes: WNL Extremities: Yes: WNL Neurological: Yes: Alert, Oriented Psychiatric: Yes: Alert, Oriented Labs: CBC, BMP 04/26/19 07:00 04/26/19 07:00 Imaging - Results Chest X-ray: Report Reviewed, Image Reviewed Assessment/Plan this young relatively healthy patient coming in with fulminant symptoms still not doing better with wbc jumping up i ahve started her on zosyn and i think we should get a ct scan on the patient close watch resp support
[2019-04-26] MEDS ORDERED: DEXTROSE 5%-WATER - 50 ML IVPB ONE ×3 (09:41→17:43)
[2019-04-26] MEDS ORDERED: PIPERACILLIN/TAZOBACTAM 3.375 GM VIAL IVPB ONE ×2 (09:41→17:43)
[2019-04-26] MEDS ORDERED: cefTRIAXone SODIUM 1 GM VIAL ONE (09:41)
[2019-04-26] MEDS: PIPERACILLIN/TAZOB 3.375 GM 3.375 GM in DEXTROSE 5%-WATER - 50 ML IVPB SCH ×3 (09:43→18:22)
[2019-04-26] MEDS: CEFTRIAXONE 1 GM in DEXTROSE 5%-WATER - 50 ML IVPB SCH (09:48)
[2019-04-26] MEDS ORDERED: PANTOPRAZOLE 40 MG TABLET (FP) PO SCH (10:00)
[2019-04-26] MEDS ORDERED: AZITHROMYCIN 250 MG TABLET PO SCH (10:00)
[2019-04-26 10:05] LABS: EPI CELLS 13.5 /HPF (0-5/HPF); HYALINE CASTS 24 /lpf (0-8); PH,URINE 6.5 (5.0-8.0); URINE APPEARANCE CLOUDY; URINE BILIRUBIN NEGATIVE (NEGATIVE); URINE COLOR YELLOW; URINE GLUCOSE (UA) 1+ (NEGATIVE); URINE KETONE NEGATIVE (NEGATIVE); URINE LEUK ESTERASE 1+ (NEGATIVE); URINE NITRITE NEGATIVE (NEGATIVE); URINE PROTEIN TRACE (NEGATIVE); URINE UROBILINOGEN 0.2 mg/dL (0.2-1.0); URINE WBC 56 /hpf (0-5)
[2019-04-26] MEDS: guaiFENesin/D-METHORPHAN HB 10 ML UNIT-DOSE CUPS PO PRN (10:29)
--- NOTE | 2019-04-26 10:41 | PN ---
Progress Note (short form) - Note Progress Note: PULMONARY Still with chest congestion, tightness, wheezing. States albuterol made her vomit. Vital Signs Period Temp Pulse Resp BP Sys/Crowder Pulse Ox Last 24 Hr 97.8 F-98.8 F 92-124 18-20 111-124/57-98 98-98 Intake & Output 04/23/19 04/24/19 04/25/19 04/26/19 23:59 23:59 23:59 23:59 Intake Total 510 510 Balance 510 510 Weight 71.668 kg Gen: frequent cough Heart: RRR Lung: bilateral rhonchi, wheezes Abd: soft, nontender Ext: no edema CBC, BMP 04/26/19 07:00 04/26/19 07:00 Active Medications Acetaminophen (Tylenol -) 650 mg PO Q6H PRN PRN Reason: PAIN LEVEL 1 - 3 Last Admin: 04/25/19 20:46 Dose: 650 mg Albuterol Sulfate (Ventolin 0.083% Nebulizer Soln -) 1 amp NEB Q6H PRN PRN Reason: ASTHMA Albuterol/Ipratropium (Duoneb -) 1 amp NEB Q4H PRN PRN Reason: SHORTNESS OF BREATH Last Admin: 04/25/19 07:25 Dose: 1 amp Azithromycin (Zithromax -) 250 mg PO DAILY BAYLEE Stop: 04/29/19 10:01 Last Admin: 04/26/19 09:43 Dose: 250 mg Guaifenesin (Robitussin Dm -) 10 ml PO Q4H PRN PRN Reason: COUGH Last Admin: 04/26/19 10:29 Dose: 10 ml Ceftriaxone Sodium 1 gm/ (Dextrose) 50 mls @ 200 mls/hr IVPB DAILY BAYLEE; Protocol Last Admin: 04/26/19 09:48 Dose: 200 mls/hr Piperacillin Sod/Tazobactam (Sod 3.375 gm/ Dextrose) 50 mls @ 100 mls/hr IVPB Q8H-IV BAYLEE; Protocol Last Admin: 04/26/19 09:43 Dose: 100 mls/hr Methylprednisolone Sodium Succinate (Solu-Medrol -) 40 mg IVPUSH Q6H-IV BAYLEE Last Admin: 04/26/19 09:43 Dose: 40 mg Pantoprazole Sodium (Protonix -) 40 mg PO DAILY BAYLEE Last Admin: 04/26/19 09:43 Dose: 40 mg Prochlorperazine Edisylate (Compazine Injection -) 10 mg IVPB Q6H PRN PRN Reason: NAUSEA AND/OR VOMITING A/P Pneumonia Acute Asthma Exacerbation - antibiotics per ID - f/u culutres - IV medrol - inhaled bronchodilators, will change to xopenex - outpt PFTs - DVT prophylaxis
[2019-04-26] MEDS ORDERED: guaiFENesin/CODEINE 10 ML UNIT-DOSE CUPS PO PRN (10:42)
[2019-04-26 11:08] LABS: ANISOCYTOSIS 0; MACROCYTOSIS 0; PLATELET ESTIMATE NORMAL
[2019-04-26 11:47] LABS: URINE RBC 5.8 /hpf (0-4)
[2019-04-26] MEDS ORDERED: LEVALBUTEROL HCL 0.63 MG/3 ML VIAL.NEB. IH ONE (11:51)
--- NOTE | 2019-04-26 11:53 | HOSP ---
Subjective - Review of Symptoms Events since last encounter: Rapid response was called overhead. Rapid response team arrived and found pt to be in distress. Pt was anxious, crying, gasping for air and tachycardic and dry coughing. Pt was given nebulizer levobuterol. Pt was not found to desaturate during rapid, O2 sat remained above 95. Vitals 130/68 BP, 120 HR, 98% O2 sat PE: General- Acute distress, anxious, AOx3 Throat- moist mucosa Resp: CTAB CVS: RRR, No MGR Plan #Tachycardia w/ Cough Likely 2/2 anxiety, cannot r/o worsening pneumonia or aspiration EKG- no T wave inversion, CASPER, sinus tachy CXR- Acute infiltrative process improved from previous CXR Primary team notified, will continue to monitor pt Physical Examination Vital Signs: Vital Signs Temperature 98.7 F 04/26/19 08:43 Pulse Rate 124 H 04/26/19 08:43 Respiratory Rate 18 04/26/19 08:44 Blood Pressure 124/98 04/26/19 08:43 O2 Sat by Pulse Oximetry (%) 98 04/26/19 08:44 Labs: CBC, BMP 04/26/19 07:00 04/26/19 07:00 Visit type - Emergency Visit Emergency Visit: Yes ED Registration Date: 04/25/19 Care time: The patient presented to the Emergency Department on the above date and was hospitalized for further evaluation of their emergent condition. - New Patient This patient is new to me today: Yes Date on this admission: 04/26/19 - Critical Care Critical Care patient: No
--- NOTE | 2019-04-26 13:14 | HOSP ---
Subjective - Review of Symptoms General: Yes: Fatigue Pulmonary: Yes: Dyspnea, Cough, Pleuritic Chest Pain Neurological: Yes: Weakness Physical Examination Vital Signs: Vital Signs Temperature 98.7 F 04/26/19 08:43 Pulse Rate 124 H 04/26/19 08:43 Respiratory Rate 18 04/26/19 08:44 Blood Pressure 124/98 04/26/19 08:43 O2 Sat by Pulse Oximetry (%) 98 04/26/19 08:44 Constitutional: Yes: Well Nourished, Anxious, Mild Distress Eyes: Yes: WNL HENT: Yes: Atraumatic Neck: Yes: Supple Cardiovascular: Yes: Tachycardia Respiratory: Yes: Accessory Muscle Use, Cough, Diminished, On Nasal O2, Poor Air Entry, Rales, SOB, SOB on Exertion, Tachypnea Gastrointestinal: Yes: Normal Bowel Sounds, Soft Labs: CBC, BMP 04/26/19 07:00 04/26/19 07:00 Hospitalist Encounter Assessment: rapid response transfer to [facility] for continuous pulse ox monitoring as well as monitoring of heart rate transfer order placed, awaiting bed placement
[2019-04-26] MEDS: IPRATROPIUM BR 0.02% 0.5 MG/2.5 ML VIAL.NEB. NEB SCH ×2 (15:20→20:16)
[2019-04-26] MEDS: LEVALBUTEROL HCL 0.63 MG/3 ML VIAL.NEB. IH SCH ×2 (15:21→20:17)
--- NOTE | 2019-04-26 15:52 | EKG ---
Test Reason : Blood Pressure : / mmHG Vent. Rate : 119 BPM Atrial Rate : 119 BPM P-R Int : 136 ms QRS Dur : 082 ms QT Int : 320 ms P-R-T Axes : 065 057 037 degrees QTc Int : 450 ms SINUS TACHYCARDIA POSSIBLE LEFT ATRIAL ENLARGEMENT NONSPECIFIC T WAVE ABNORMALITY ABNORMAL ECG WHEN COMPARED WITH ECG OF 25-APR-2019 07:50, NO SIGNIFICANT CHANGE WAS FOUND Confirmed by FRED MUIR MD ([id number]) on 04/26/2019 3:52:06 PM Referred By: Confirmed By:FRED MUIR MD
[2019-04-26] MEDS ORDERED: PT OWN MED DRAWER 7, Y5N ONE (17:46)
[2019-04-26] MEDS: guaiFENesin/CODEINE 5 ML UNIT-DOSE CUPS PO PRN (19:40)
[2019-04-26] MEDS: ACETAMINOPHEN 325 MG TABLET (FP) PO PRN (21:50)
[2019-04-26] MEDS ORDERED: PROCHLORPERAZINE INJECTION 10 MG/2 ML VIAL IVPB PRN (21:55)
[2019-04-26] MEDS ORDERED: IBUPROFEN 600 MG TABLET (FP) PO ONE (22:22)
--- NOTE | 2019-04-26 22:30 | HOSP ---
Subjective - Review of Symptoms Events since last encounter: Pt reports nasal congestion today as well as continued chest pain with cough since admission. Physical Examination Vital Signs: Vital Signs Temperature 97.3 F L 04/26/19 18:00 Pulse Rate 107 H 04/26/19 18:00 Respiratory Rate 18 04/26/19 18:00 Blood Pressure 108/72 04/26/19 18:00 O2 Sat by Pulse Oximetry (%) 100 04/26/19 18:00 Constitutional: Yes: Anxious (mildly) HENT: Yes: Atraumatic, Normocephalic Cardiovascular: Yes: S1, S2. No: Gallop, Murmur, Rub Respiratory: Yes: Other (coarse breath sounds bilaterally) Gastrointestinal: Yes: Normal Bowel Sounds, Soft. No: Tenderness Labs: CBC, BMP 04/26/19 07:00 04/26/19 07:00 Hospitalist Encounter Assessment: nasal congestion, body aches in s/o PNA/asthma exacerbation - sudafed contraindicated in s/o tachycardia earlier - pt declining nasal spray - trial ibuprofen 600mg x 1
[2019-04-27] MEDS ORDERED: PIPERACILLIN/TAZOBACTAM 3.375 GM VIAL IVPB ONE ×3 (01:20→17:16)
[2019-04-27] MEDS ORDERED: DEXTROSE 5%-WATER - 50 ML IVPB ONE ×3 (01:20→17:16)
[2019-04-27] MEDS ORDERED: PIPERACILLIN/TAZOB 3.375 GM 3.375 GM in DEXTROSE 5%-WATER - 50 ML IVPB SCH (02:00)
[2019-04-27] MEDS: PIPERACILLIN/TAZOB 3.375 GM 3.375 GM in DEXTROSE 5%-WATER - 50 ML IVPB SCH ×3 (02:01→17:19)
[2019-04-27] MEDS: methylPREDNISolone NA SUCC 40 MG/1 ML VIAL IVPUSH SCH ×4 (02:32→21:33)
[2019-04-27] MEDS: guaiFENesin/CODEINE 5 ML UNIT-DOSE CUPS PO PRN ×2 (02:33→11:45)
[2019-04-27] MEDS: ACETAMINOPHEN 325 MG TABLET (FP) PO PRN ×2 (06:20→15:48)
--- NOTE | 2019-04-27 08:01 | PN ---
Progress Note, Physician Chief Complaint: c/o difficulty breathing History of Present Illness: 18 y/o F with PMH of anemia presented to the ED because of SOB. Per Patient, she has been having difficulty breathing for the past 3 weeks since she caught a cold from her mother and son who were recently sick with Bronchitis and PNA. When SOB did not improve, she went to [facility] where they diagnosed her with PNA and discharged her on a course of augmentin (was scheduled to take last dose friday). Pt also have been experiencing nausea accompanied by NBNB vomiting consistently with food then eventually on empty stomach for the last 3 days. Pt also complaind of a pressure like chest pain, non radiating and intermittent in nature rating 8/10 in severity. Codeine temporarely relieved the pain but deep inspiration makes it worse and induces cough spells. Pt recently visited [place] a few weeks ago. - Current Medication List Current Medications: Active Medications Acetaminophen (Tylenol -) 650 mg PO Q6H PRN PRN Reason: PAIN LEVEL 1 - 3 Last Admin: 04/27/19 06:20 Dose: 650 mg Azithromycin (Zithromax -) 250 mg PO DAILY BAYLEE Stop: 04/29/19 10:01 Guaifenesin/Codeine Phosphate (Robitussin Ac -) 10 ml PO Q8H PRN PRN Reason: COUGH Last Admin: 04/27/19 02:33 Dose: 10 ml Ceftriaxone Sodium 1 gm/ (Dextrose) 50 mls @ 100 mls/hr IVPB DAILY BAYLEE; Protocol Piperacillin Sod/Tazobactam (Sod 3.375 gm/ Dextrose) 50 mls @ 100 mls/hr IVPB Q8H-IV BAYLEE; Protocol Last Admin: 04/27/19 02:01 Dose: 100 mls/hr Ipratropium [place] (Atrovent 0.02% Nebulizer -) 1 amp NEB RTID BAYLEE Levalbuterol HCl (Xopenex) 0.63 mg IH RTID BAYLEE Methylprednisolone Sodium Succinate (Solu-Medrol -) 40 mg IVPUSH Q6H-IV BAYLEE Last Admin: 04/27/19 02:32 Dose: 40 mg Pantoprazole Sodium (Protonix -) 40 mg PO DAILY BAYLEE Prochlorperazine Edisylate (Compazine Injection -) 10 mg IVPB Q6H PRN PRN Reason: NAUSEA AND/OR VOMITING - Objective Vital Signs: Vital Signs Temperature 98.6 F 04/27/19 06:00 Pulse Rate 78 04/27/19 06:00 Respiratory Rate 20 04/27/19 06:00 Blood Pressure 117/48 L 04/27/19 06:00 O2 Sat by Pulse Oximetry (%) 99 04/26/19 21:00 Constitutional: Yes: Well Nourished, Anxious Eyes: Yes: WNL, Conjunctiva Clear HENT: Yes: WNL, Atraumatic, Normocephalic Neck: Yes: WNL, Supple, Trachea Midline Cardiovascular: Yes: WNL, Regular Rate and Rhythm Respiratory: Yes: WNL, Regular, CTA Bilaterally ...Rectal Exam: Yes: Deferred Genitourinary: Yes: WNL Breast(s): Yes: WNL Musculoskeletal: Yes: WNL Extremities: Yes: WNL Edema: No Peripheral Pulses WNL: Yes Peripheral Pulses: Left Radial: 2+, Right Radial: 2+, Left Doralis Pedis: 2+, Right Dorsalis Pedis: 2+, Left Femoral: 2+, Right Femoral: 2+ Integumentary: Yes: Body Piercing, Tattoos Neurological: Yes: WNL, Alert, Oriented ...Motor Strength: WNL Psychiatric: Yes: Other (very anxious) Labs: CBC, BMP 04/26/19 07:00 04/26/19 07:00 - ....Imaging Cat Scan: Report Reviewed (no acute pathology, no pna/consolidation) Problem List - Problems (1) Asthma exacerbation Assessment/Plan: CT without acute pathology/no pna/consolidation c/w Azithromycin and ceftriaxone change Antitussives to q4h appreciate pulmonary consultation c/w steroids and begin to taper tomorrow cepacol lozenges Problems reviewed: Yes Code(s): J45.901 - UNSPECIFIED ASTHMA WITH (ACUTE) EXACERBATION Qualifiers: Asthma severity: moderate Asthma persistence: unspecified Qualified Code( s): J45.901 - Unspecified asthma with (acute) exacerbation (2) Pneumonia Assessment/Plan: no pna on CT chest on solumedrol, duonebs scheduled, oxygen 2 liters. Code(s): J18.9 - PNEUMONIA, UNSPECIFIED ORGANISM Qualifiers: Pneumonia type: due to unspecified organism Laterality: right Lung location: lower lobe of lung Qualified Code(s): J18.1 - Lobar pneumonia, unspecified organism (3) Prophylactic measure Assessment/Plan: FEN adequate PO intake montior elctrolytes regualr diet DVT haparin Dispo maintain in patient full code discharge planning Code(s): Z29.9 - ENCOUNTER FOR PROPHYLACTIC MEASURES, UNSPECIFIED (4) Shortness of breath Assessment/Plan: c/w xopenex steroid to be tapered tomorrow, c/w current dose supplemental O2 as needed cough suppressant q4H Code(s): R06.02 - SHORTNESS OF BREATH Visit type - Emergency Visit Emergency Visit: Yes ED Registration Date: 04/25/19 Care time: The patient presented to the Emergency Department on the above date and was hospitalized for further evaluation of their emergent condition. - New Patient This patient is new to me today: Yes Date on this admission: 04/27/19 - Critical Care Critical Care patient: No - Discharge Referral Referred to [facility] Med [facility].C.: No
[2019-04-27] MEDS: IPRATROPIUM BR 0.02% 0.5 MG/2.5 ML VIAL.NEB. NEB SCH ×3 (08:17→19:50)
[2019-04-27] MEDS: LEVALBUTEROL HCL 0.63 MG/3 ML VIAL.NEB. IH SCH ×3 (08:20→19:50)
[2019-04-27] MEDS ORDERED: PT OWN MED DRAWER 7, Y5N ONE (09:01)
[2019-04-27] MEDS: PANTOPRAZOLE 40 MG TABLET (FP) PO SCH (09:38)
[2019-04-27] MEDS: AZITHROMYCIN 250 MG TABLET PO SCH (09:38)
[2019-04-27] MEDS ORDERED: CEFTRIAXONE 1 GM in DEXTROSE 5%-WATER - 50 ML IVPB SCH (10:00)
[2019-04-27 11:04] LABS: BASO % 0.1 % (0-2.0); HEMATOCRIT 36.6 % (32.4-45.2); LYMPH % 6.3 % (8-40); MCHC 32.8 g/dl (32.0-36.0); MEAN CELL VOLUME 91.6 fl (80-96); MEAN PLT VOLUME 7.3 fl (7.5-11.1); MONO % 2.7 % (3.8-10.2); NEUT % 90.9 % (42.8-82.8); PLATELET COUNT 315 K/MM3 (134-434); RDW 13.8 % (11.6-15.6); WHITE BLOOD COUNT 23.1 K/mm3 (4.0-10.0)
[2019-04-27 11:39] LABS: ALBUMIN 3.5 g/dl (3.4-5.0); BILIRUBIN,TOTAL 0.2 mg/dL (0.2-1); BLOOD UREA NITROGEN 18.2 mg/dL (7-18); CALCIUM 8.8 mg/dL (8.5-10.1); CREATININE 0.7 mg/dL (0.55-1.3); MAGNESIUM 2.4 mg/dL (1.8-2.4)
[2019-04-27 11:51] LABS: ANISOCYTOSIS 0; MACROCYTOSIS 0; PLATELET ESTIMATE NORMAL
[2019-04-27 11:54] VITALS: BMI 28.9
--- NOTE | 2019-04-27 12:13 | PN ---
Progress Note, Physician History of Present Illness: pulmonary alert,feeling better,less dyspneic,less cough. chest ct -infiltrates - Current Medication List Current Medications: Active Medications Acetaminophen (Tylenol -) 650 mg PO Q6H PRN PRN Reason: PAIN LEVEL 1 - 3 Last Admin: 04/27/19 06:20 Dose: 650 mg Azithromycin (Zithromax -) 250 mg PO DAILY BAYLEE Stop: 04/29/19 10:01 Last Admin: 04/27/19 09:38 Dose: 250 mg Guaifenesin/Codeine Phosphate (Robitussin Ac -) 10 ml PO Q8H PRN PRN Reason: COUGH Last Admin: 04/27/19 11:45 Dose: 10 ml Ceftriaxone Sodium 1 gm/ (Dextrose) 50 mls @ 100 mls/hr IVPB DAILY BAYLEE; Protocol Piperacillin Sod/Tazobactam (Sod 3.375 gm/ Dextrose) 50 mls @ 100 mls/hr IVPB Q8H-IV BAYLEE; Protocol Last Admin: 04/27/19 09:28 Dose: 100 mls/hr Ipratropium [place] (Atrovent 0.02% Nebulizer -) 1 amp NEB RTID BAYLEE Last Admin: 04/27/19 08:17 Dose: 1 amp Levalbuterol HCl (Xopenex) 0.63 mg IH RTID BAYLEE Last Admin: 04/27/19 08:20 Dose: Not Given Methylprednisolone Sodium Succinate (Solu-Medrol -) 40 mg IVPUSH Q6H-IV BAYLEE Last Admin: 04/27/19 09:28 Dose: 40 mg Pantoprazole Sodium (Protonix -) 40 mg PO DAILY BAYLEE Last Admin: 04/27/19 09:38 Dose: 40 mg Prochlorperazine Edisylate (Compazine Injection -) 10 mg IVPB Q6H PRN PRN Reason: NAUSEA AND/OR VOMITING - Objective Vital Signs: Vital Signs Temperature 98.2 F 04/27/19 08:48 Pulse Rate 89 04/27/19 08:48 Respiratory Rate 20 04/27/19 08:48 Blood Pressure 125/46 L 04/27/19 08:48 O2 Sat by Pulse Oximetry (%) 98 04/27/19 08:51 Constitutional: Yes: Well Nourished, Calm Eyes: Yes: WNL HENT: Yes: WNL Neck: Yes: WNL Cardiovascular: Yes: Regular Rate and Rhythm, S1, S2 Respiratory: Yes: Wheezes (few scattered sorin wheezes) Gastrointestinal: Yes: Normal Bowel Sounds, Soft Extremities: Yes: WNL Edema: No Labs: CBC, BMP 04/27/19 10:31 04/27/19 10:31 Problem List - Problems (1) Pneumonia Code(s): J18.9 - PNEUMONIA, UNSPECIFIED ORGANISM Qualifiers: Pneumonia type: due to unspecified organism Laterality: right Lung location: lower lobe of lung Qualified Code(s): J18.1 - Lobar pneumonia, unspecified organism (2) Influenza-like illness Code(s): R69 - ILLNESS, UNSPECIFIED (3) Nausea & vomiting Code(s): R11.2 - NAUSEA WITH VOMITING, UNSPECIFIED (4) Pharyngitis Code(s): J02.9 - ACUTE PHARYNGITIS, UNSPECIFIED Qualifiers: Pharyngitis/tonsillitis etiology: unspecified etiology Qualified Code(s): J02.9 - Acute pharyngitis, unspecified (5) Sore throat Code(s): J02.9 - ACUTE PHARYNGITIS, UNSPECIFIED (6) Shortness of breath Code(s): R06.02 - SHORTNESS OF BREATH Assessment/Plan IMP DYSPNEA ? ASTHMA EXACERBATION ASTHMATIC BRONCHITIS STREP THROAT PLAN IV STEROIDS SAME DOSE,START TAPER IN AM ABX O2 NEEDED INHALED BRONCHODILATORS COUGH MEDS PFTS OUTPATIENT DR CALHOUN Problem List - Problems (1) Pneumonia Code(s): J18.9 - PNEUMONIA, UNSPECIFIED ORGANISM Qualifiers: Pneumonia type: due to unspecified organism Laterality: right Lung location: lower lobe of lung Qualified Code(s): J18.1 - Lobar pneumonia, unspecified organism (2) Influenza-like illness Code(s): R69 - ILLNESS, UNSPECIFIED (3) Nausea & vomiting Code(s): R11.2 - NAUSEA WITH VOMITING, UNSPECIFIED (4) Pharyngitis Code(s): J02.9 - ACUTE PHARYNGITIS, UNSPECIFIED Qualifiers: Pharyngitis/tonsillitis etiology: unspecified etiology Qualified Code(s): J02.9 - Acute pharyngitis, unspecified (5) Sore throat Code(s): J02.9 - ACUTE PHARYNGITIS, UNSPECIFIED (6) Shortness of breath Code(s): R06.02 - SHORTNESS OF BREATH
--- NOTE | 2019-04-27 13:13 | PN ---
Progress Note, Physician History of Present Illness: starting to feel better breathing better - Current Medication List Current Medications: Active Medications Acetaminophen (Tylenol -) 650 mg PO Q6H PRN PRN Reason: PAIN LEVEL 1 - 3 Last Admin: 04/27/19 06:20 Dose: 650 mg Azithromycin (Zithromax -) 250 mg PO DAILY [facility] Stop: 04/29/19 10:01 Last Admin: 04/27/19 09:38 Dose: 250 mg Guaifenesin/Codeine Phosphate (Robitussin Ac -) 10 ml PO Q8H PRN PRN Reason: COUGH Last Admin: 04/27/19 11:45 Dose: 10 ml Ceftriaxone Sodium 1 gm/ (Dextrose) 50 mls @ 100 mls/hr IVPB DAILY [facility]; Protocol Piperacillin Sod/Tazobactam (Sod 3.375 gm/ Dextrose) 50 mls @ 100 mls/hr IVPB Q8H-IV [facility]; Protocol Last Admin: 04/27/19 09:28 Dose: 100 mls/hr Ipratropium [place] (Atrovent 0.02% Nebulizer -) 1 amp NEB RTID [facility] Last Admin: 04/27/19 08:17 Dose: 1 amp Levalbuterol HCl (Xopenex) 0.63 mg IH RTID [facility] Last Admin: 04/27/19 08:20 Dose: Not Given Methylprednisolone Sodium Succinate (Solu-Medrol -) 40 mg IVPUSH Q6H-IV [facility] Last Admin: 04/27/19 09:28 Dose: 40 mg Pantoprazole Sodium (Protonix -) 40 mg PO DAILY [facility] Last Admin: 04/27/19 09:38 Dose: 40 mg Prochlorperazine Edisylate (Compazine Injection -) 10 mg IVPB Q6H PRN PRN Reason: NAUSEA AND/OR VOMITING - Objective Vital Signs: Vital Signs Temperature 98.2 F 04/27/19 08:48 Pulse Rate 89 04/27/19 08:48 Respiratory Rate 20 04/27/19 08:48 Blood Pressure 125/46 L 04/27/19 08:48 O2 Sat by Pulse Oximetry (%) 98 04/27/19 08:51 Constitutional: Yes: No Distress, Calm Cardiovascular: Yes: S1, S2 Respiratory: Yes: Regular, CTA Bilaterally Gastrointestinal: Yes: Normal Bowel Sounds, Soft Musculoskeletal: Yes: WNL Extremities: Yes: WNL Neurological: Yes: Alert, Oriented Psychiatric: Yes: Alert, Oriented Labs: CBC, BMP 04/27/19 10:31 04/27/19 10:31 Assessment/Plan Problem List - Problems (1) Pneumonia Code(s): J18.9 - PNEUMONIA, UNSPECIFIED ORGANISM Qualifiers: Pneumonia type: due to unspecified organism Laterality: right Lung location: lower lobe of lung Qualified Code(s): J18.1 - Lobar pneumonia, unspecified organism (2) Influenza-like illness Code(s): R69 - ILLNESS, UNSPECIFIED (3) Nausea & vomiting Code(s): R11.2 - NAUSEA WITH VOMITING, UNSPECIFIED (4) Pharyngitis Code(s): J02.9 - ACUTE PHARYNGITIS, UNSPECIFIED Qualifiers: Pharyngitis/tonsillitis etiology: unspecified etiology Qualified Code(s): J02.9 - Acute pharyngitis, unspecified (5) Sore throat Code(s): J02.9 - ACUTE PHARYNGITIS, UNSPECIFIED (6) Shortness of breath Code(s): R06.02 - SHORTNESS OF BREATH plan continue abx resp support
[2019-04-27] MEDS ORDERED: guaiFENesin/CODEINE 5 ML UNIT-DOSE CUPS PO PRN ×2 (14:56→16:02)
[2019-04-27] MEDS: BENZOCAINE/MENTH/CETYLPYRD CL 1 EACH LOZENGE MM PRN ×2 (17:18→23:11)
[2019-04-28] MEDS ORDERED: PIPERACILLIN/TAZOBACTAM 3.375 GM VIAL IVPB ONE ×3 (00:53→18:14)
[2019-04-28] MEDS ORDERED: DEXTROSE 5%-WATER - 50 ML IVPB ONE ×3 (00:53→18:15)
[2019-04-28] MEDS: PIPERACILLIN/TAZOB 3.375 GM 3.375 GM in DEXTROSE 5%-WATER - 50 ML IVPB SCH ×3 (02:08→19:18)
[2019-04-28] MEDS: methylPREDNISolone NA SUCC 40 MG/1 ML VIAL IVPUSH SCH ×3 (02:09→19:18)
[2019-04-28] MEDS: guaiFENesin/CODEINE 10 ML UNIT-DOSE CUPS PO PRN ×4 (02:51→19:42)
[2019-04-28 07:05] LABS: BASO % 0.1 % (0-2.0); HEMATOCRIT 35.1 % (32.4-45.2); HEMOGLOBIN 11.7 GM/dL (10.7-15.3); LYMPH % 8.4 % (8-40); MCH 30.5 pg (25.7-33.7); MCHC 33.4 g/dl (32.0-36.0); MEAN CELL VOLUME 91.2 fl (80-96); MEAN PLT VOLUME 7.4 fl (7.5-11.1); MONO % 3.1 % (3.8-10.2); NEUT % 88.4 % (42.8-82.8); PLATELET COUNT 317 K/MM3 (134-434); RBC 3.85 M/mm3 (3.60-5.2); RDW 13.7 % (11.6-15.6); WHITE BLOOD COUNT 15.3 K/mm3 (4.0-10.0)
[2019-04-28 07:12] LABS: ALBUMIN 3.4 g/dl (3.4-5.0); BILIRUBIN,TOTAL 0.4 mg/dL (0.2-1); BLOOD UREA NITROGEN 17.2 mg/dL (7-18); CALCIUM 8.4 mg/dL (8.5-10.1); CREATININE 0.6 mg/dL (0.55-1.3); MAGNESIUM 2.7 mg/dL (1.8-2.4); POTASSIUM 4.1 mmol/L (3.5-5.1); TOT PROT 6.7 g/dl (6.4-8.2)
[2019-04-28] MEDS: IPRATROPIUM BR 0.02% 0.5 MG/2.5 ML VIAL.NEB. NEB SCH ×3 (07:45→20:50)
[2019-04-28] MEDS: LEVALBUTEROL HCL 0.63 MG/3 ML VIAL.NEB. IH SCH ×3 (07:45→20:51)
--- NOTE | 2019-04-28 07:48 | PN ---
Progress Note, Physician Chief Complaint: c/o intermittent cough, states breathing is better today History of Present Illness: 18 y/o F with PMH of anemia presented to the ED because of SOB. Per Patient, she has been having difficulty breathing for the past 3 weeks since she caught a cold from her mother and son who were recently sick with Bronchitis and PNA. When SOB did not improve, she went to [facility] where they diagnosed her with PNA and discharged her on a course of augmentin (was scheduled to take last dose friday). Pt also have been experiencing nausea accompanied by NBNB vomiting consistently with food then eventually on empty stomach for the last 3 days. Pt also complaind of a pressure like chest pain, non radiating and intermittent in nature rating 8/10 in severity. Codeine temporarely relieved the pain but deep inspiration makes it worse and induces cough spells. Pt recently visited [place] a few weeks ago. - Current Medication List Current Medications: Active Medications Acetaminophen (Tylenol -) 650 mg PO Q6H PRN PRN Reason: PAIN LEVEL 1 - 3 Last Admin: 04/27/19 15:48 Dose: 650 mg Azithromycin (Zithromax -) 250 mg PO DAILY [facility] Stop: 04/29/19 10:01 Last Admin: 04/27/19 09:38 Dose: 250 mg Benzocaine/Menthol (Cepacol Lozenge -) 1 each MM Q4H PRN PRN Reason: SORE THROAT Last Admin: 04/27/19 23:11 Dose: 1 each Guaifenesin/Codeine Phosphate (Robitussin Ac -) 10 ml PO Q4H PRN PRN Reason: COUGH Last Admin: 04/28/19 02:51 Dose: 10 ml Ceftriaxone Sodium 1 gm/ (Dextrose) 50 mls @ 100 mls/hr IVPB DAILY [facility]; Protocol Piperacillin Sod/Tazobactam (Sod 3.375 gm/ Dextrose) 50 mls @ 100 mls/hr IVPB Q8H-IV [facility]; Protocol Last Admin: 04/28/19 02:08 Dose: 100 mls/hr Ipratropium [place] (Atrovent 0.02% Nebulizer -) 1 amp NEB RTID [facility] Last Admin: 04/27/19 19:50 Dose: 1 amp Levalbuterol HCl (Xopenex) 0.63 mg IH RTID [facility] Last Admin: 04/27/19 19:50 Dose: 0.63 mg Methylprednisolone Sodium Succinate (Solu-Medrol -) 40 mg IVPUSH Q6H-IV [facility] Last Admin: 04/28/19 02:09 Dose: 40 mg Pantoprazole Sodium (Protonix -) 40 mg PO DAILY [facility] Last Admin: 04/27/19 09:38 Dose: 40 mg Prochlorperazine Edisylate (Compazine Injection -) 10 mg IVPB Q6H PRN PRN Reason: NAUSEA AND/OR VOMITING - Objective Vital Signs: Vital Signs Temperature 98.2 F 04/28/19 07:01 Pulse Rate 67 04/28/19 07:01 Respiratory Rate 18 04/28/19 07:01 Blood Pressure 118/56 L 04/28/19 07:01 O2 Sat by Pulse Oximetry (%) 97 04/27/19 21:00 Constitutional: Yes: Well Nourished, No Distress, Calm, Anxious (at times) Eyes: Yes: WNL, Conjunctiva Clear, EOM Intact HENT: Yes: WNL, Atraumatic, Normocephalic Neck: Yes: WNL, Supple, Trachea Midline Cardiovascular: Yes: Regular Rate and Rhythm, Tachycardia Respiratory: Yes: WNL, Regular, CTA Bilaterally Gastrointestinal: Yes: WNL, Normal Bowel Sounds ...Rectal Exam: Yes: Deferred Genitourinary: Yes: WNL Breast(s): Yes: WNL Musculoskeletal: Yes: WNL Extremities: Yes: WNL Edema: No Peripheral Pulses WNL: No Peripheral Pulses: Left Radial: 2+, Right Radial: 2+, Left Doralis Pedis: 2+, Right Dorsalis Pedis: 2+, Left Femoral: 2+, Right Femoral: 2+ Integumentary: Yes: Body Piercing, Tattoos Neurological: Yes: WNL, Alert, Oriented ...Motor Strength: WNL Psychiatric: Yes: WNL Labs: CBC, BMP 04/28/19 05:25 Problem List - Problems (1) Asthma exacerbation Assessment/Plan: CT without acute pathology/no pna/consolidation c/w Azithromycin and ceftriaxone c/w Antitussives q4h appreciate pulmonary consultation c/w steroids solumedrol 40mg q8 cepacol lozenges Code(s): J45.901 - UNSPECIFIED ASTHMA WITH (ACUTE) EXACERBATION Qualifiers: Asthma severity: moderate Asthma persistence: unspecified Qualified Code( s): J45.901 - Unspecified asthma with (acute) exacerbation (2) Pneumonia Assessment/Plan: no pna on CT chest on solumedrol, duonebs scheduled, oxygen 2 liters. Code(s): J18.9 - PNEUMONIA, UNSPECIFIED ORGANISM Qualifiers: Pneumonia type: due to unspecified organism Laterality: right Lung location: lower lobe of lung Qualified Code(s): J18.1 - Lobar pneumonia, unspecified organism (3) Prophylactic measure Assessment/Plan: FEN adequate PO intake montior elctrolytes regualr diet DVT haparin Dispo maintain in patient full code discharge planning Code(s): Z29.9 - ENCOUNTER FOR PROPHYLACTIC MEASURES, UNSPECIFIED (4) Shortness of breath Assessment/Plan: c/w xopenex steroid taper supplemental O2 as needed cough suppressant q4H Code(s): R06.02 - SHORTNESS OF BREATH (5) Need for emotional support Assessment/Plan: emotional support provided, very anxious at times encourage ambulation and deep breathing exercises Code(s): R45.89 - OTHER SYMPTOMS AND SIGNS INVOLVING EMOTIONAL STATE Visit type - Emergency Visit Emergency Visit: Yes ED Registration Date: 04/25/19 Care time: The patient presented to the Emergency Department on the above date and was hospitalized for further evaluation of their emergent condition. - New Patient This patient is new to me today: No - Critical Care Critical Care patient: No - Discharge Referral Referred to [facility] Med P.C.: No
[2019-04-28] MEDS: AZITHROMYCIN 250 MG TABLET PO SCH (09:21)
[2019-04-28] MEDS: PANTOPRAZOLE 40 MG TABLET (FP) PO SCH (09:22)
[2019-04-28] MEDS: BENZOCAINE/MENTH/CETYLPYRD CL 1 EACH LOZENGE MM PRN ×3 (11:10→21:27)
--- NOTE | 2019-04-28 11:29 | PN ---
Progress Note, Physician History of Present Illness: PULMONARY ALERT,C/O INCREASED SOB,BRONCHOSPASM - Current Medication List Current Medications: Active Medications Acetaminophen (Tylenol -) 650 mg PO Q6H PRN PRN Reason: PAIN LEVEL 1 - 3 Last Admin: 04/27/19 15:48 Dose: 650 mg Azithromycin (Zithromax -) 250 mg PO DAILY [facility] Stop: 04/29/19 10:01 Last Admin: 04/28/19 09:21 Dose: 250 mg Benzocaine/Menthol (Cepacol Lozenge -) 1 each MM Q4H PRN PRN Reason: SORE THROAT Last Admin: 04/28/19 11:10 Dose: 1 each Guaifenesin/Codeine Phosphate (Robitussin Ac -) 10 ml PO Q4H PRN PRN Reason: COUGH Last Admin: 04/28/19 09:21 Dose: 10 ml Ceftriaxone Sodium 1 gm/ (Dextrose) 50 mls @ 100 mls/hr IVPB DAILY [facility]; Protocol Piperacillin Sod/Tazobactam (Sod 3.375 gm/ Dextrose) 50 mls @ 100 mls/hr IVPB Q8H-IV [facility]; Protocol Last Admin: 04/28/19 09:22 Dose: 100 mls/hr Ipratropium [place] (Atrovent 0.02% Nebulizer -) 1 amp NEB RTID [facility] Last Admin: 04/28/19 07:45 Dose: 1 amp Levalbuterol HCl (Xopenex) 0.63 mg IH RTID [facility] Last Admin: 04/28/19 07:45 Dose: 0.63 mg Methylprednisolone Sodium Succinate (Solu-Medrol -) 40 mg IVPUSH Q12H [facility] Pantoprazole Sodium (Protonix -) 40 mg PO DAILY [facility] Last Admin: 04/28/19 09:22 Dose: 40 mg Prochlorperazine Edisylate (Compazine Injection -) 10 mg IVPB Q6H PRN PRN Reason: NAUSEA AND/OR VOMITING - Objective Vital Signs: Vital Signs Temperature 97.7 F 04/28/19 10:00 Pulse Rate 101 H 04/28/19 10:00 Respiratory Rate 20 04/28/19 10:00 Blood Pressure 133/63 04/28/19 10:00 O2 Sat by Pulse Oximetry (%) 98 04/28/19 09:33 Constitutional: Yes: Well Nourished, Anxious Eyes: Yes: WNL HENT: Yes: WNL Neck: Yes: WNL Cardiovascular: Yes: Regular Rate and Rhythm, S1, S2 Respiratory: Yes: Wheezes (BILATERAL WHEEZES) Gastrointestinal: Yes: Normal Bowel Sounds, Soft Extremities: Yes: WNL Edema: No Labs: CBC, BMP 04/28/19 05:25 04/28/19 05:25 Problem List - Problems (1) Pneumonia Code(s): J18.9 - PNEUMONIA, UNSPECIFIED ORGANISM Qualifiers: Pneumonia type: due to unspecified organism Laterality: right Lung location: lower lobe of lung Qualified Code(s): J18.1 - Lobar pneumonia, unspecified organism (2) Influenza-like illness Code(s): R69 - ILLNESS, UNSPECIFIED (3) Nausea & vomiting Code(s): R11.2 - NAUSEA WITH VOMITING, UNSPECIFIED (4) Pharyngitis Code(s): J02.9 - ACUTE PHARYNGITIS, UNSPECIFIED Qualifiers: Pharyngitis/tonsillitis etiology: unspecified etiology Qualified Code(s): J02.9 - Acute pharyngitis, unspecified (5) Sore throat Code(s): J02.9 - ACUTE PHARYNGITIS, UNSPECIFIED (6) Shortness of breath Code(s): R06.02 - SHORTNESS OF BREATH Assessment/Plan IMP DYSPNEA ? ASTHMA EXACERBATION ASTHMATIC BRONCHITIS STREP THROAT PLAN IV STEROIDS Q8 ABX O2 NEEDED INHALED BRONCHODILATORS COUGH MEDS PFTS OUTPATIENT DR CALHOUN Problem List - Problems (1) Pneumonia Code(s): J18.9 - PNEUMONIA, UNSPECIFIED ORGANISM Qualifiers: Pneumonia type: due to unspecified organism Laterality: right Lung location: lower lobe of lung Qualified Code(s): J18.1 - Lobar pneumonia, unspecified organism (2) Influenza-like illness Code(s): R69 - ILLNESS, UNSPECIFIED (3) Nausea & vomiting Code(s): R11.2 - NAUSEA WITH VOMITING, UNSPECIFIED (4) Pharyngitis Code(s): J02.9 - ACUTE PHARYNGITIS, UNSPECIFIED Qualifiers: Pharyngitis/tonsillitis etiology: unspecified etiology Qualified Code(s): J02.9 - Acute pharyngitis, unspecified (5) Sore throat Code(s): J02.9 - ACUTE PHARYNGITIS, UNSPECIFIED (6) Shortness of breath Code(s): R06.02 - SHORTNESS OF BREATH
[2019-04-28] MEDS: CEFTRIAXONE 1 GM in DEXTROSE 5%-WATER - 50 ML IVPB SCH (12:11)
--- NOTE | 2019-04-28 12:27 | PN ---
Progress Note, Physician History of Present Illness: very unhappy crying - Current Medication List Current Medications: Active Medications Acetaminophen (Tylenol -) 650 mg PO Q6H PRN PRN Reason: PAIN LEVEL 1 - 3 Last Admin: 04/27/19 15:48 Dose: 650 mg Azithromycin (Zithromax -) 250 mg PO DAILY [facility] Stop: 04/29/19 10:01 Last Admin: 04/28/19 09:21 Dose: 250 mg Benzocaine/Menthol (Cepacol Lozenge -) 1 each MM Q4H PRN PRN Reason: SORE THROAT Last Admin: 04/28/19 11:10 Dose: 1 each Guaifenesin/Codeine Phosphate (Robitussin Ac -) 10 ml PO Q4H PRN PRN Reason: COUGH Last Admin: 04/28/19 09:21 Dose: 10 ml Piperacillin Sod/Tazobactam (Sod 3.375 gm/ Dextrose) 50 mls @ 100 mls/hr IVPB Q8H-IV [facility]; Protocol Last Admin: 04/28/19 09:22 Dose: 100 mls/hr Ipratropium [place] (Atrovent 0.02% Nebulizer -) 1 amp NEB RTID [facility] Last Admin: 04/28/19 07:45 Dose: 1 amp Levalbuterol HCl (Xopenex) 0.63 mg IH RTID [facility] Last Admin: 04/28/19 07:45 Dose: 0.63 mg Methylprednisolone Sodium Succinate (Solu-Medrol -) 40 mg IVPUSH Q8H-IV [facility] Pantoprazole Sodium (Protonix -) 40 mg PO DAILY [facility] Last Admin: 04/28/19 09:22 Dose: 40 mg Prochlorperazine Edisylate (Compazine Injection -) 10 mg IVPB Q6H PRN PRN Reason: NAUSEA AND/OR VOMITING - Objective Vital Signs: Vital Signs Temperature 97.7 F 04/28/19 10:00 Pulse Rate 101 H 04/28/19 10:00 Respiratory Rate 20 04/28/19 10:00 Blood Pressure 133/63 04/28/19 10:00 O2 Sat by Pulse Oximetry (%) 98 04/28/19 09:33 Constitutional: Yes: Calm, Mild Distress, Other (crying) Cardiovascular: Yes: S1, S2 Respiratory: Yes: Regular, CTA Bilaterally Gastrointestinal: Yes: Normal Bowel Sounds, Soft Musculoskeletal: Yes: WNL Extremities: Yes: WNL Neurological: Yes: Alert, Oriented Psychiatric: Yes: Alert, Oriented Labs: CBC, BMP 04/28/19 05:25 04/28/19 05:25 Assessment/Plan Problem List - Problems (1) Pneumonia Code(s): J18.9 - PNEUMONIA, UNSPECIFIED ORGANISM Qualifiers: Pneumonia type: due to unspecified organism Laterality: right Lung location: lower lobe of lung Qualified Code(s): J18.1 - Lobar pneumonia, unspecified organism (2) Influenza-like illness Code(s): R69 - ILLNESS, UNSPECIFIED (3) Nausea & vomiting Code(s): R11.2 - NAUSEA WITH VOMITING, UNSPECIFIED (4) Pharyngitis Code(s): J02.9 - ACUTE PHARYNGITIS, UNSPECIFIED Qualifiers: Pharyngitis/tonsillitis etiology: unspecified etiology Qualified Code(s): J02.9 - Acute pharyngitis, unspecified (5) Sore throat Code(s): J02.9 - ACUTE PHARYNGITIS, UNSPECIFIED (6) Shortness of breath Code(s): R06.02 - SHORTNESS OF BREATH plan off of abx continue to monitor resp support rest as per the team
[2019-04-28] MEDS ORDERED: methylPREDNISolone NA SUCC 40 MG/1 ML VIAL IVPUSH SCH ×2 (15:00→22:00)
[2019-04-29] MEDS: guaiFENesin/CODEINE 10 ML UNIT-DOSE CUPS PO PRN ×6 (00:25→23:14)
[2019-04-29] MEDS ORDERED: DEXTROSE 5%-WATER - 50 ML IVPB ONE ×2 (01:26→09:28)
[2019-04-29] MEDS ORDERED: PIPERACILLIN/TAZOBACTAM 3.375 GM VIAL IVPB ONE ×2 (01:26→09:28)
[2019-04-29] MEDS: PIPERACILLIN/TAZOB 3.375 GM 3.375 GM in DEXTROSE 5%-WATER - 50 ML IVPB SCH ×2 (01:36→09:41)
[2019-04-29] MEDS: methylPREDNISolone NA SUCC 40 MG/1 ML VIAL IVPUSH SCH ×3 (01:37→21:32)
[2019-04-29 06:53] LABS: BASO % 0.1 % (0-2.0); HEMATOCRIT 36.1 % (32.4-45.2); HEMOGLOBIN 12.2 GM/dL (10.7-15.3); LYMPH % 9.7 % (8-40); MCH 31.3 pg (25.7-33.7); MCHC 33.9 g/dl (32.0-36.0); MEAN CELL VOLUME 92.3 fl (80-96); MEAN PLT VOLUME 7.3 fl (7.5-11.1); MONO % 2.9 % (3.8-10.2); NEUT % 87.3 % (42.8-82.8); PLATELET COUNT 341 K/MM3 (134-434); RBC 3.92 M/mm3 (3.60-5.2); RDW 13.7 % (11.6-15.6); WHITE BLOOD COUNT 12.8 K/mm3 (4.0-10.0)
[2019-04-29] MEDS: IPRATROPIUM BR 0.02% 0.5 MG/2.5 ML VIAL.NEB. NEB SCH ×3 (07:30→20:00)
[2019-04-29] MEDS: LEVALBUTEROL HCL 0.63 MG/3 ML VIAL.NEB. IH SCH ×3 (07:30→20:00)
[2019-04-29 07:47] LABS: ALBUMIN 3.3 g/dl (3.4-5.0); BILIRUBIN,TOTAL 0.3 mg/dL (0.2-1); BLOOD UREA NITROGEN 19.3 mg/dL (7-18); CALCIUM 8.1 mg/dL (8.5-10.1); CREATININE 0.7 mg/dL (0.55-1.3); MAGNESIUM 2.8 mg/dL (1.8-2.4); POTASSIUM 4.2 mmol/L (3.5-5.1); TOT PROT 6.5 g/dl (6.4-8.2)
--- NOTE | 2019-04-29 08:22 | PN ---
Progress Note, Physician Chief Complaint: c/o intermittent cough, states breathing is better today, able to sleep last night History of Present Illness: 18 y/o F with PMH of anemia presented to the ED because of SOB. Per Patient, she has been having difficulty breathing for the past 3 weeks since she caught a cold from her mother and son who were recently sick with Bronchitis and PNA. When SOB did not improve, she went to [facility] where they diagnosed her with PNA and discharged her on a course of augmentin (was scheduled to take last dose friday). Pt also have been experiencing nausea accompanied by NBNB vomiting consistently with food then eventually on empty stomach for the last 3 days. Pt also complaind of a pressure like chest pain, non radiating and intermittent in nature rating 8/10 in severity. Codeine temporarely relieved the pain but deep inspiration makes it worse and induces cough spells. Pt recently visited [place] a few weeks ago. - Current Medication List Current Medications: Active Medications Acetaminophen (Tylenol -) 650 mg PO Q6H PRN PRN Reason: PAIN LEVEL 1 - 3 Last Admin: 04/27/19 15:48 Dose: 650 mg Azithromycin (Zithromax -) 250 mg PO DAILY [facility] Stop: 04/29/19 10:01 Last Admin: 04/28/19 09:21 Dose: 250 mg Benzocaine/Menthol (Cepacol Lozenge -) 1 each MM Q4H PRN PRN Reason: SORE THROAT Last Admin: 04/28/19 21:27 Dose: 1 each Guaifenesin/Codeine Phosphate (Robitussin Ac -) 10 ml PO Q4H PRN PRN Reason: COUGH Last Admin: 04/29/19 05:41 Dose: 10 ml Piperacillin Sod/Tazobactam (Sod 3.375 gm/ Dextrose) 50 mls @ 100 mls/hr IVPB Q8H-IV [facility]; Protocol Last Admin: 04/29/19 01:36 Dose: 100 mls/hr Ipratropium [place] (Atrovent 0.02% Nebulizer -) 1 amp NEB RTID [facility] Last Admin: 04/29/19 07:30 Dose: 1 amp Levalbuterol HCl (Xopenex) 0.63 mg IH RTID [facility] Last Admin: 04/29/19 07:30 Dose: 0.63 mg Methylprednisolone Sodium Succinate (Solu-Medrol -) 40 mg IVPUSH Q8H-IV [facility] Last Admin: 04/29/19 01:37 Dose: 40 mg Pantoprazole Sodium (Protonix -) 40 mg PO DAILY [facility] Last Admin: 04/28/19 09:22 Dose: 40 mg Prochlorperazine Edisylate (Compazine Injection -) 10 mg IVPB Q6H PRN PRN Reason: NAUSEA AND/OR VOMITING - Objective Vital Signs: Vital Signs Temperature 98.3 F 04/29/19 05:58 Pulse Rate 86 04/29/19 05:58 Respiratory Rate 20 04/29/19 05:58 Blood Pressure 120/72 04/29/19 05:58 O2 Sat by Pulse Oximetry (%) 96 04/28/19 20:25 Additional Findings/Remarks: Constitutional: Yes: Well Nourished, No Distress, Calm, Anxious (at times) Eyes: Yes: WNL, Conjunctiva Clear, EOM Intact HENT: Yes: WNL, Atraumatic, Normocephalic Neck: Yes: WNL, Supple, Trachea Midline Cardiovascular: Yes: Regular Rate and Rhythm, Tachycardia Respiratory: Yes: WNL, Regular, wheezes to RUL Gastrointestinal: Yes: WNL, Normal Bowel Sounds ...Rectal Exam: Yes: Deferred Genitourinary: Yes: WNL Breast(s): Yes: WNL Musculoskeletal: Yes: WNL Extremities: Yes: WNL Edema: No Peripheral Pulses WNL: No Peripheral Pulses: Left Radial: 2+, Right Radial: 2+, Left Doralis Pedis: 2+, Right Dorsalis Pedis: 2+, Left Femoral: 2+, Right Femoral: 2+ Integumentary: Yes: Body Piercing, Tattoos Neurological: Yes: WNL, Alert, Oriented ...Motor Strength: WNL Psychiatric: Yes: WNL Labs: CBC, BMP 04/29/19 05:30 04/29/19 05:30 Problem List - Problems (1) Asthma exacerbation Assessment/Plan: CT without acute pathology/no pna/consolidation dc abx c/w Antitussives q4h appreciate pulmonary consultation c/w steroids solumedrol 40mg q12 cepacol lozenges Code(s): J45.901 - UNSPECIFIED ASTHMA WITH (ACUTE) EXACERBATION Qualifiers: Asthma severity: moderate Asthma persistence: unspecified Qualified Code( s): J45.901 - Unspecified asthma with (acute) exacerbation (2) Pneumonia Assessment/Plan: no pna on CT chest on solumedrol, duonebs scheduled, oxygen 2 liters. abx stopped Code(s): J18.9 - PNEUMONIA, UNSPECIFIED ORGANISM Qualifiers: Pneumonia type: due to unspecified organism Laterality: right Lung location: lower lobe of lung Qualified Code(s): J18.1 - Lobar pneumonia, unspecified organism (3) Prophylactic measure Assessment/Plan: FEN adequate PO intake montior elctrolytes regualr diet DVT haparin Dispo maintain in patient full code discharge planning Code(s): Z29.9 - ENCOUNTER FOR PROPHYLACTIC MEASURES, UNSPECIFIED (4) Shortness of breath Assessment/Plan: c/w xopenex steroid taper supplemental O2 as needed cough suppressant q4H Code(s): R06.02 - SHORTNESS OF BREATH (5) Need for emotional support Assessment/Plan: emotional support provided, very anxious at times encourage ambulation and deep breathing exercises Code(s): R45.89 - OTHER SYMPTOMS AND SIGNS INVOLVING EMOTIONAL STATE Visit type - Emergency Visit Emergency Visit: Yes ED Registration Date: 04/25/19 Care time: The patient presented to the Emergency Department on the above date and was hospitalized for further evaluation of their emergent condition. - New Patient This patient is new to me today: No - Critical Care Critical Care patient: No - Discharge Referral Referred to [facility] Med P.C.: No
[2019-04-29] MEDS: AZITHROMYCIN 250 MG TABLET PO SCH (09:40)
[2019-04-29] MEDS: PANTOPRAZOLE 40 MG TABLET (FP) PO SCH (09:40)
[2019-04-29] MEDS: BENZOCAINE/MENTH/CETYLPYRD CL 1 EACH LOZENGE MM PRN ×2 (11:00→21:30)
--- NOTE | 2019-04-29 11:53 | PN ---
Progress Note, Physician - Current Medication List Current Medications: Active Medications Acetaminophen (Tylenol -) 650 mg PO Q6H PRN PRN Reason: PAIN LEVEL 1 - 3 Last Admin: 04/27/19 15:48 Dose: 650 mg Benzocaine/Menthol (Cepacol Lozenge -) 1 each MM Q4H PRN PRN Reason: SORE THROAT Last Admin: 04/29/19 11:00 Dose: 1 each Guaifenesin/Codeine Phosphate (Robitussin Ac -) 10 ml PO Q4H PRN PRN Reason: COUGH Last Admin: 04/29/19 09:40 Dose: 10 ml Ipratropium [place] (Atrovent 0.02% Nebulizer -) 1 amp NEB RTID [facility] Last Admin: 04/29/19 07:30 Dose: 1 amp Levalbuterol HCl (Xopenex) 0.63 mg IH RTID [facility] Last Admin: 04/29/19 07:30 Dose: 0.63 mg Methylprednisolone Sodium Succinate (Solu-Medrol -) 40 mg IVPUSH Q8H-IV [facility] Last Admin: 04/29/19 09:40 Dose: 40 mg Pantoprazole Sodium (Protonix -) 40 mg PO DAILY [facility] Last Admin: 04/29/19 09:40 Dose: 40 mg Prochlorperazine Edisylate (Compazine Injection -) 10 mg IVPB Q6H PRN PRN Reason: NAUSEA AND/OR VOMITING - Objective Vital Signs: Vital Signs Temperature 97.8 F 04/29/19 10:00 Pulse Rate 126 H 04/29/19 10:00 Respiratory Rate 20 04/29/19 10:00 Blood Pressure 114/62 04/29/19 10:00 O2 Sat by Pulse Oximetry (%) 97 04/29/19 09:00 Labs: CBC, BMP 04/29/19 05:30 04/29/19 05:30
--- NOTE | 2019-04-29 13:27 | PN ---
Progress Note (short form) - Note Progress Note: PULMONARY Still with chest congestion, tightness, wheezing. Vital Signs Period Temp Pulse Resp BP Sys/[place] Pulse Ox Last 24 Hr 97.8 F-98.8 F 76-126 20-20 106-136/54-85 96-97 Gen: frequent cough Heart: RRR Lung: bilateral rhonchi, wheezes Abd: soft, nontender Ext: no edema CBC, BMP 04/29/19 05:30 04/29/19 05:30 Active Medications Acetaminophen (Tylenol -) 650 mg PO Q6H PRN PRN Reason: PAIN LEVEL 1 - 3 Last Admin: 04/27/19 15:48 Dose: 650 mg Benzocaine/Menthol (Cepacol Lozenge -) 1 each MM Q4H PRN PRN Reason: SORE THROAT Last Admin: 04/29/19 11:00 Dose: 1 each Guaifenesin/Codeine Phosphate (Robitussin Ac -) 10 ml PO Q4H PRN PRN Reason: COUGH Last Admin: 04/29/19 09:40 Dose: 10 ml Ipratropium [place] (Atrovent 0.02% Nebulizer -) 1 amp NEB RTID [facility] Last Admin: 04/29/19 07:30 Dose: 1 amp Levalbuterol HCl (Xopenex) 0.63 mg IH RTID [facility] Last Admin: 04/29/19 07:30 Dose: 0.63 mg Methylprednisolone Sodium Succinate (Solu-Medrol -) 40 mg IVPUSH Q8H-IV [facility] Last Admin: 04/29/19 09:40 Dose: 40 mg Pantoprazole Sodium (Protonix -) 40 mg PO DAILY [facility] Last Admin: 04/29/19 09:40 Dose: 40 mg Prochlorperazine Edisylate (Compazine Injection -) 10 mg IVPB Q6H PRN PRN Reason: NAUSEA AND/OR VOMITING A/P Acute Bronchospasm/Acute Asthma Exacerbation - IV medrol - inhaled bronchodilators - add singulair - outpt PFTs - DVT prophylaxis
[2019-04-29] MEDS: MONTELUKAST NA 10 MG TABLET PO SCH (21:32)
[2019-04-30] MEDS: guaiFENesin/CODEINE 10 ML UNIT-DOSE CUPS PO PRN ×3 (05:28→23:05)
--- NOTE | 2019-04-30 07:59 | PN ---
Progress Note, Physician Chief Complaint: states she feels better today, less wheezing but throat is sore History of Present Illness: 18 y/o F with PMH of anemia presented to the ED because of SOB. Per Patient, she has been having difficulty breathing for the past 3 weeks since she caught a cold from her mother and son who were recently sick with Bronchitis and PNA. When SOB did not improve, she went to [facility] where they diagnosed her with PNA and discharged her on a course of augmentin (was scheduled to take last dose friday). Pt also have been experiencing nausea accompanied by NBNB vomiting consistently with food then eventually on empty stomach for the last 3 days. Pt also complaind of a pressure like chest pain, non radiating and intermittent in nature rating 8/10 in severity. Codeine temporarely relieved the pain but deep inspiration makes it worse and induces cough spells. Pt recently visited [place] a few weeks ago. - Current Medication List Current Medications: Active Medications Acetaminophen (Tylenol -) 650 mg PO Q6H PRN PRN Reason: PAIN LEVEL 1 - 3 Last Admin: 04/27/19 15:48 Dose: 650 mg Benzocaine/Menthol (Cepacol Lozenge -) 1 each MM Q4H PRN PRN Reason: SORE THROAT Last Admin: 04/29/19 21:30 Dose: 1 each Guaifenesin/Codeine Phosphate (Robitussin Ac -) 10 ml PO Q4H PRN PRN Reason: COUGH Last Admin: 04/30/19 05:28 Dose: 10 ml Ipratropium [place] (Atrovent 0.02% Nebulizer -) 1 amp NEB RTID [facility] Last Admin: 04/29/19 20:00 Dose: 1 amp Levalbuterol HCl (Xopenex) 0.63 mg IH RTID [facility] Last Admin: 04/29/19 20:00 Dose: 0.63 mg Methylprednisolone Sodium Succinate (Solu-Medrol -) 40 mg IVPUSH BID [facility] Last Admin: 04/29/19 21:32 Dose: 40 mg Montelukast Sodium (Singulair -) 10 mg PO HS [facility] Last Admin: 04/29/19 21:32 Dose: 10 mg Pantoprazole Sodium (Protonix -) 40 mg PO DAILY [facility] Last Admin: 04/29/19 09:40 Dose: 40 mg Prochlorperazine Edisylate (Compazine Injection -) 10 mg IVPB Q6H PRN PRN Reason: NAUSEA AND/OR VOMITING - Objective Vital Signs: Vital Signs Temperature 98.1 F 04/30/19 06:00 Pulse Rate 82 04/30/19 06:00 Respiratory Rate 18 04/30/19 06:00 Blood Pressure 121/61 04/30/19 06:00 O2 Sat by Pulse Oximetry (%) 97 04/29/19 22:00 Additional Findings/Remarks: Constitutional: Yes: Well Nourished, No Distress, Calm, Anxious (at times) Eyes: Yes: WNL, Conjunctiva Clear, EOM Intact HENT: Yes: WNL, Atraumatic, Normocephalic. Sore red, but no exudate noted Neck: Yes: WNL, Supple, Trachea Midline Cardiovascular: Yes: Regular Rate and Rhythm, Tachycardia Respiratory: Yes: WNL, Regular, expiratory wheezes to RUL Gastrointestinal: Yes: WNL, Normal Bowel Sounds ...Rectal Exam: Yes: Deferred Genitourinary: Yes: WNL Breast(s): Yes: WNL Musculoskeletal: Yes: WNL Extremities: Yes: WNL Edema: No Peripheral Pulses WNL: No Peripheral Pulses: Left Radial: 2+, Right Radial: 2+, Left Doralis Pedis: 2+, Right Dorsalis Pedis: 2+, Left Femoral: 2+, Right Femoral: 2+ Integumentary: Yes: Body Piercing, Tattoos Neurological: Yes: WNL, Alert, Oriented ...Motor Strength: WNL Psychiatric: Yes: WNL Labs: CBC, BMP 04/29/19 05:30 04/29/19 05:30 Problem List - Problems (1) Asthma exacerbation Assessment/Plan: CT without acute pathology/no pna/consolidation c/w Antitussives q4h appreciate pulmonary consultation c/w steroids solumedrol 40mg q12 cepacol lozenges Code(s): J45.901 - UNSPECIFIED ASTHMA WITH (ACUTE) EXACERBATION Qualifiers: Asthma severity: moderate Asthma persistence: unspecified Qualified Code( s): J45.901 - Unspecified asthma with (acute) exacerbation (2) Pneumonia Assessment/Plan: no pna on CT chest on solumedrol, duonebs scheduled, oxygen 2 liters. abx stopped, monitor off Code(s): J18.9 - PNEUMONIA, UNSPECIFIED ORGANISM Qualifiers: Pneumonia type: due to unspecified organism Laterality: right Lung location: lower lobe of lung Qualified Code(s): J18.1 - Lobar pneumonia, unspecified organism (3) Prophylactic measure Assessment/Plan: FEN adequate PO intake monitor electrolytes regular diet DVT heparin Dispo maintain in patient full code discharge planning Code(s): Z29.9 - ENCOUNTER FOR PROPHYLACTIC MEASURES, UNSPECIFIED (4) Shortness of breath Assessment/Plan: c/w xopenex steroid taper supplemental O2 as needed cough suppressant q4H Code(s): R06.02 - SHORTNESS OF BREATH (5) Need for emotional support Assessment/Plan: emotional support provided, very anxious at times encourage ambulation and deep breathing exercises Code(s): R45.89 - OTHER SYMPTOMS AND SIGNS INVOLVING EMOTIONAL STATE (6) Diarrhea Assessment/Plan: multiple episodes of loose stools overnight wbc 17 but on steroids, afebrile abx stopped yesterday, most likely r/t course of abx but will send Cdif Code(s): R19.7 - DIARRHEA, UNSPECIFIED (7) Acute pharyngitis Assessment/Plan: throat red without exudate cont to monitor c/w nebs and humidified air/O2 Code(s): J02.9 - ACUTE PHARYNGITIS, UNSPECIFIED Visit type - Emergency Visit Emergency Visit: Yes ED Registration Date: 04/25/19 Care time: The patient presented to the Emergency Department on the above date and was hospitalized for further evaluation of their emergent condition. - New Patient This patient is new to me today: No - Critical Care Critical Care patient: No - Discharge Referral Referred to [facility] No
[2019-04-30] MEDS: IPRATROPIUM BR 0.02% 0.5 MG/2.5 ML VIAL.NEB. NEB SCH ×3 (08:16→20:43)
[2019-04-30] MEDS: LEVALBUTEROL HCL 0.63 MG/3 ML VIAL.NEB. IH SCH ×3 (08:17→20:43)
[2019-04-30] MEDS ORDERED: PT OWN MED DRAWER 7, Y5N ONE (09:06)
[2019-04-30] MEDS: PANTOPRAZOLE 40 MG TABLET (FP) PO SCH (09:09)
[2019-04-30] MEDS: methylPREDNISolone NA SUCC 40 MG/1 ML VIAL IVPUSH SCH ×2 (09:09→21:46)
[2019-04-30] MEDS: BENZOCAINE/MENTH/CETYLPYRD CL 1 EACH LOZENGE MM PRN ×3 (09:10→21:47)
[2019-04-30 11:30] LABS: BASO % 0.1 % (0-2.0); HEMATOCRIT 39.8 % (32.4-45.2); LYMPH % 9.2 % (8-40); MCH 29.8 pg (25.7-33.7); MCHC 32.6 g/dl (32.0-36.0); MEAN CELL VOLUME 91.3 fl (80-96); MEAN PLT VOLUME 6.6 fl (7.5-11.1); MONO % 4.8 % (3.8-10.2); NEUT % 85.9 % (42.8-82.8); PLATELET COUNT 349 K/MM3 (134-434); RBC 4.36 M/mm3 (3.60-5.2); RDW 13.5 % (11.6-15.6); WHITE BLOOD COUNT 17.3 K/mm3 (4.0-10.0)
[2019-04-30 11:58] LABS: ALBUMIN 3.4 g/dl (3.4-5.0); BILIRUBIN,TOTAL 0.3 mg/dL (0.2-1); BLOOD UREA NITROGEN 19.1 mg/dL (7-18); CALCIUM 8.4 mg/dL (8.5-10.1); CREATININE 0.7 mg/dL (0.55-1.3); MAGNESIUM 2.8 mg/dL (1.8-2.4); POTASSIUM 3.9 mmol/L (3.5-5.1); TOT PROT 6.8 g/dl (6.4-8.2)
--- NOTE | 2019-04-30 12:27 | PN ---
Progress Note, Physician History of Present Illness: PULMONARY ALERT,LESS DYSPNEIC,ANXIOUS - Current Medication List Current Medications: Active Medications Acetaminophen (Tylenol -) 650 mg PO Q6H PRN PRN Reason: PAIN LEVEL 1 - 3 Last Admin: 04/27/19 15:48 Dose: 650 mg Benzocaine/Menthol (Cepacol Lozenge -) 1 each MM Q4H PRN PRN Reason: SORE THROAT Last Admin: 04/30/19 09:10 Dose: 1 each Guaifenesin/Codeine Phosphate (Robitussin Ac -) 10 ml PO Q4H PRN PRN Reason: COUGH Last Admin: 04/30/19 09:10 Dose: 10 ml Ipratropium [place] (Atrovent 0.02% Nebulizer -) 1 amp NEB RTID [facility] Last Admin: 04/30/19 08:16 Dose: 1 amp Levalbuterol HCl (Xopenex) 0.63 mg IH RTID [facility] Last Admin: 04/30/19 08:17 Dose: 0.63 mg Methylprednisolone Sodium Succinate (Solu-Medrol -) 40 mg IVPUSH BID [facility] Last Admin: 04/30/19 09:09 Dose: 40 mg Montelukast Sodium (Singulair -) 10 mg PO HS [facility] Last Admin: 04/29/19 21:32 Dose: 10 mg Pantoprazole Sodium (Protonix -) 40 mg PO DAILY [facility] Last Admin: 04/30/19 09:09 Dose: 40 mg Prochlorperazine Edisylate (Compazine Injection -) 10 mg IVPB Q6H PRN PRN Reason: NAUSEA AND/OR VOMITING - Objective Vital Signs: Vital Signs Temperature 98.1 F 04/30/19 10:00 Pulse Rate 85 04/30/19 10:00 Respiratory Rate 18 04/30/19 10:00 Blood Pressure 132/68 04/30/19 10:00 O2 Sat by Pulse Oximetry (%) 99 04/30/19 11:39 Constitutional: Yes: Well Nourished, Calm Eyes: Yes: WNL HENT: Yes: WNL Neck: Yes: WNL Cardiovascular: Yes: Regular Rate and Rhythm, S1, S2 Respiratory: Yes: Wheezes (LESS WHEEZES BILATERALLY) Gastrointestinal: Yes: Normal Bowel Sounds, Soft Extremities: Yes: WNL Edema: No Labs: CBC, BMP 04/30/19 11:18 04/30/19 11:18 Problem List - Problems (1) Pneumonia Code(s): J18.9 - PNEUMONIA, UNSPECIFIED ORGANISM Qualifiers: Pneumonia type: due to unspecified organism Laterality: right Lung location: lower lobe of lung Qualified Code(s): J18.1 - Lobar pneumonia, unspecified organism (2) Influenza-like illness Code(s): R69 - ILLNESS, UNSPECIFIED (3) Nausea & vomiting Code(s): R11.2 - NAUSEA WITH VOMITING, UNSPECIFIED (4) Pharyngitis Code(s): J02.9 - ACUTE PHARYNGITIS, UNSPECIFIED Qualifiers: Pharyngitis/tonsillitis etiology: unspecified etiology Qualified Code(s): J02.9 - Acute pharyngitis, unspecified (5) Sore throat Code(s): J02.9 - ACUTE PHARYNGITIS, UNSPECIFIED (6) Shortness of breath Code(s): R06.02 - SHORTNESS OF BREATH Assessment/Plan IMP DYSPNEA ? ASTHMA EXACERBATION ASTHMATIC BRONCHITIS STREP THROAT PLAN IV STEROIDS Q12 ABX O2 NEEDED INHALED BRONCHODILATORS COUGH MEDS PFTS OUTPATIENT DR CALHOUN Problem List - Problems (1) Pneumonia Code(s): J18.9 - PNEUMONIA, UNSPECIFIED ORGANISM Qualifiers: Pneumonia type: due to unspecified organism Laterality: right Lung location: lower lobe of lung Qualified Code(s): J18.1 - Lobar pneumonia, unspecified organism (2) Influenza-like illness Code(s): R69 - ILLNESS, UNSPECIFIED (3) Nausea & vomiting Code(s): R11.2 - NAUSEA WITH VOMITING, UNSPECIFIED (4) Pharyngitis Code(s): J02.9 - ACUTE PHARYNGITIS, UNSPECIFIED Qualifiers: Pharyngitis/tonsillitis etiology: unspecified etiology Qualified Code(s): J02.9 - Acute pharyngitis, unspecified (5) Sore throat Code(s): J02.9 - ACUTE PHARYNGITIS, UNSPECIFIED (6) Shortness of breath Code(s): R06.02 - SHORTNESS OF BREATH
[2019-04-30] MEDS: ACETAMINOPHEN 325 MG TABLET (FP) PO PRN ×2 (12:48→18:05)
[2019-04-30 12:50] LABS: ANISOCYTOSIS 2+; MACROCYTOSIS 0; PLATELET ESTIMATE NORMAL
--- NOTE | 2019-04-30 13:43 | PN ---
Progress Note, Physician - Current Medication List Current Medications: Active Medications Acetaminophen (Tylenol -) 650 mg PO Q6H PRN PRN Reason: PAIN LEVEL 1 - 3 Last Admin: 04/30/19 12:48 Dose: 650 mg Benzocaine/Menthol (Cepacol Lozenge -) 1 each MM Q4H PRN PRN Reason: SORE THROAT Last Admin: 04/30/19 09:10 Dose: 1 each Guaifenesin/Codeine Phosphate (Robitussin Ac -) 10 ml PO Q4H PRN PRN Reason: COUGH Last Admin: 04/30/19 09:10 Dose: 10 ml Ipratropium [place] (Atrovent 0.02% Nebulizer -) 1 amp NEB RTID [facility] Last Admin: 04/30/19 08:16 Dose: 1 amp Levalbuterol HCl (Xopenex) 0.63 mg IH RTID [facility] Last Admin: 04/30/19 08:17 Dose: 0.63 mg Methylprednisolone Sodium Succinate (Solu-Medrol -) 40 mg IVPUSH BID [facility] Last Admin: 04/30/19 09:09 Dose: 40 mg Montelukast Sodium (Singulair -) 10 mg PO HS [facility] Last Admin: 04/29/19 21:32 Dose: 10 mg Pantoprazole Sodium (Protonix -) 40 mg PO DAILY [facility] Last Admin: 04/30/19 09:09 Dose: 40 mg Prochlorperazine Edisylate (Compazine Injection -) 10 mg IVPB Q6H PRN PRN Reason: NAUSEA AND/OR VOMITING - Objective Vital Signs: Vital Signs Temperature 98.1 F 04/30/19 10:00 Pulse Rate 85 04/30/19 10:00 Respiratory Rate 18 04/30/19 10:00 Blood Pressure 132/68 04/30/19 10:00 O2 Sat by Pulse Oximetry (%) 99 04/30/19 11:39 Labs: CBC, BMP 04/30/19 11:18 04/30/19 11:18
[2019-04-30] MEDS ORDERED: LOPERAMIDE HCL 2 MG CAPSULE PO PRN (18:50)
[2019-04-30] MEDS: MONTELUKAST NA 10 MG TABLET PO SCH (21:46)
[2019-05-01] MEDS: ACETAMINOPHEN 325 MG TABLET (FP) PO PRN ×3 (05:45→18:27)
[2019-05-01 06:37] LABS: BASO % 0.1 % (0-2.0); HEMATOCRIT 39.1 % (32.4-45.2); HEMOGLOBIN 13.1 GM/dL (10.7-15.3); MCH 30.4 pg (25.7-33.7); MCHC 33.4 g/dl (32.0-36.0); MEAN PLT VOLUME 6.7 fl (7.5-11.1); MONO % 3.8 % (3.8-10.2); NEUT % 87.1 % (42.8-82.8); PLATELET COUNT 389 K/MM3 (134-434); RDW 13.7 % (11.6-15.6); WHITE BLOOD COUNT 16.1 K/mm3 (4.0-10.0)
[2019-05-01 07:02] LABS: ALBUMIN 3.2 g/dl (3.4-5.0); BILIRUBIN,TOTAL 0.3 mg/dL (0.2-1); BLOOD UREA NITROGEN 20.8 mg/dL (7-18); CALCIUM 8.4 mg/dL (8.5-10.1); CREATININE 0.6 mg/dL (0.55-1.3); MAGNESIUM 2.9 mg/dL (1.8-2.4); POTASSIUM 4.4 mmol/L (3.5-5.1); TOT PROT 6.6 g/dl (6.4-8.2)
--- NOTE | 2019-05-01 07:30 | PN ---
Progress Note, Physician Chief Complaint: states she feels better today, less coughing, planning for discharge History of Present Illness: 18 y/o F with PMH of anemia presented to the ED because of SOB. Per Patient, she has been having difficulty breathing for the past 3 weeks since she caught a cold from her mother and son who were recently sick with Bronchitis and PNA. When SOB did not improve, she went to [facility] where they diagnosed her with PNA and discharged her on a course of augmentin (was scheduled to take last dose friday). Pt also have been experiencing nausea accompanied by NBNB vomiting consistently with food then eventually on empty stomach for the last 3 days. Pt also complaind of a pressure like chest pain, non radiating and intermittent in nature rating 8/10 in severity. Codeine temporarely relieved the pain but deep inspiration makes it worse and induces cough spells. Pt recently visited [place] a few weeks ago. - Current Medication List Current Medications: Active Medications Acetaminophen (Tylenol -) 650 mg PO Q6H PRN PRN Reason: PAIN LEVEL 1 - 3 Last Admin: 05/01/19 05:45 Dose: 650 mg Benzocaine/Menthol (Cepacol Lozenge -) 1 each MM Q4H PRN PRN Reason: SORE THROAT Last Admin: 04/30/19 21:47 Dose: 1 each Guaifenesin/Codeine Phosphate (Robitussin Ac -) 10 ml PO Q4H PRN PRN Reason: COUGH Last Admin: 04/30/19 23:05 Dose: 10 ml Ipratropium [place] (Atrovent 0.02% Nebulizer -) 1 amp NEB RTID [facility] Last Admin: 04/30/19 20:43 Dose: 1 amp Levalbuterol HCl (Xopenex) 0.63 mg IH RTID [facility] Last Admin: 04/30/19 20:43 Dose: 0.63 mg Loperamide HCl (Imodium -) 2 mg PO Q8H PRN PRN Reason: DIARRHEA Last Admin: 04/30/19 21:46 Dose: 2 mg Methylprednisolone Sodium Succinate (Solu-Medrol -) 40 mg IVPUSH BID [facility] Last Admin: 04/30/19 21:46 Dose: 40 mg Montelukast Sodium (Singulair -) 10 mg PO HS [facility] Last Admin: 04/30/19 21:46 Dose: 10 mg Pantoprazole Sodium (Protonix -) 40 mg PO DAILY [facility] Last Admin: 04/30/19 09:09 Dose: 40 mg Prochlorperazine Edisylate (Compazine Injection -) 10 mg IVPB Q6H PRN PRN Reason: NAUSEA AND/OR VOMITING - Objective Vital Signs: Vital Signs Temperature 98.2 F 04/30/19 22:00 Pulse Rate 81 04/30/19 22:00 Respiratory Rate 20 04/30/19 22:00 Blood Pressure 133/72 04/30/19 22:00 O2 Sat by Pulse Oximetry (%) 99 04/30/19 21:00 Additional Findings/Remarks: Constitutional: Yes: Well Nourished, No Distress, Calm, Anxious (at times) Eyes: Yes: WNL, Conjunctiva Clear, EOM Intact HENT: Yes: WNL, Atraumatic, Normocephalic. Throat red, with white exudate noted to left pharynx Neck: Yes: WNL, Supple, Trachea Midline Cardiovascular: Yes: Regular Rate and Rhythm, Tachycardia Respiratory: Yes: WNL, Regular, no wheezing Gastrointestinal: Yes: WNL, Normal Bowel Sounds ...Rectal Exam: Yes: Deferred Genitourinary: Yes: WNL Breast(s): Yes: WNL Musculoskeletal: Yes: WNL Extremities: Yes: WNL Edema: No Peripheral Pulses WNL: No Peripheral Pulses: Left Radial: 2+, Right Radial: 2+, Left Doralis Pedis: 2+, Right Dorsalis Pedis: 2+, Left Femoral: 2+, Right Femoral: 2+ Integumentary: Yes: Body Piercing, Tattoos Neurological: Yes: WNL, Alert, Oriented ...Motor Strength: WNL Psychiatric: Yes: WNL Labs: CBC, BMP 05/01/19 05:40 05/01/19 05:40 - ....Imaging Cat Scan: Report Reviewed Problem List - Problems (1) Asthma exacerbation Assessment/Plan: CT without acute pathology/no pna/consolidation c/w Antitussives q4h appreciate pulmonary consultation c/w steroids -last IV dose today and will transition to PO with taper tomorrow cepacol lozenges Code(s): J45.901 - UNSPECIFIED ASTHMA WITH (ACUTE) EXACERBATION Qualifiers: Asthma severity: moderate Asthma persistence: unspecified Qualified Code( s): J45.901 - Unspecified asthma with (acute) exacerbation (2) Pneumonia Assessment/Plan: no pna on CT chest on solumedrol, duonebs scheduled, oxygen 2 liters. abx stopped, monitor off Code(s): J18.9 - PNEUMONIA, UNSPECIFIED ORGANISM Qualifiers: Pneumonia type: due to unspecified organism Laterality: right Lung location: lower lobe of lung Qualified Code(s): J18.1 - Lobar pneumonia, unspecified organism (3) Prophylactic measure Assessment/Plan: FEN adequate PO intake monitor electrolytes regular diet DVT heparin Dispo maintain in patient, november shower PRN full code discharge planning Code(s): Z29.9 - ENCOUNTER FOR PROPHYLACTIC MEASURES, UNSPECIFIED (4) Shortness of breath Assessment/Plan: c/w xopenex, spiriva PO steroid taper supplemental O2 as needed cough suppressant q4H Code(s): R06.02 - SHORTNESS OF BREATH (5) Need for emotional support Assessment/Plan: emotional support provided, very anxious at times encourage ambulation and deep breathing exercises Code(s): R45.89 - OTHER SYMPTOMS AND SIGNS INVOLVING EMOTIONAL STATE (6) Diarrhea Assessment/Plan: resolved Code(s): R19.7 - DIARRHEA, UNSPECIFIED (7) Acute pharyngitis Assessment/Plan: throat red without white exudate to left pharynx completed course of abx gargle with warm NS q 4 h cont to monitor c/w nebs and humidified air/O2 Code(s): J02.9 - ACUTE PHARYNGITIS, UNSPECIFIED Visit type - Emergency Visit Emergency Visit: Yes ED Registration Date: 04/25/19 Care time: The patient presented to the Emergency Department on the above date and was hospitalized for further evaluation of their emergent condition. - New Patient This patient is new to me today: No - Critical Care Critical Care patient: No - Discharge Referral Referred to [facility] Med [facility].: No
[2019-05-01] MEDS: IPRATROPIUM BR 0.02% 0.5 MG/2.5 ML VIAL.NEB. NEB SCH ×3 (08:15→21:30)
[2019-05-01] MEDS: LEVALBUTEROL HCL 0.63 MG/3 ML VIAL.NEB. IH SCH ×3 (08:15→21:56)
[2019-05-01] MEDS: PANTOPRAZOLE 40 MG TABLET (FP) PO SCH (09:12)
[2019-05-01] MEDS: methylPREDNISolone NA SUCC 40 MG/1 ML VIAL IVPUSH SCH (09:12)
[2019-05-01] MEDS ORDERED: methylPREDNISolone NA SUCC 40 MG/1 ML VIAL IVPUSH SCH (10:00)
[2019-05-01 11:13] LABS: ANISOCYTOSIS 2+; MACROCYTOSIS 0; PLATELET ESTIMATE NORMAL; TEAR DROP CELLS 1+
--- NOTE | 2019-05-01 12:28 | PN ---
Progress Note (short form) - Note Progress Note: PULMONARY Still with chest congestion, tightness, wheezing but significantly improved. Vital Signs Period Temp Pulse Resp BP Sys/[place]der Pulse Ox Last 24 Hr 97.9 F-98.9 F 80-101 18-20 110-133/63-75 97-99 Gen: NAD at rest Heart: RRR Lung: no wheezes appreciated Abd: soft, nontender Ext: no edema CBC, BMP 05/01/19 05:40 05/01/19 05:40 Active Medications Acetaminophen (Tylenol -) 650 mg PO Q6H PRN PRN Reason: PAIN LEVEL 1 - 3 Last Admin: 05/01/19 11:44 Dose: 650 mg Benzocaine/Menthol (Cepacol Lozenge -) 1 each MM Q4H PRN PRN Reason: SORE THROAT Last Admin: 04/30/19 21:47 Dose: 1 each Guaifenesin/Codeine Phosphate (Robitussin Ac -) 10 ml PO Q4H PRN PRN Reason: COUGH Last Admin: 04/30/19 23:05 Dose: 10 ml Ipratropium [place] (Atrovent 0.02% Nebulizer -) 1 amp NEB RTID [facility] Last Admin: 05/01/19 08:15 Dose: 1 amp Levalbuterol HCl (Xopenex) 0.63 mg IH RTID [facility] Last Admin: 05/01/19 08:15 Dose: 0.63 mg Loperamide HCl (Imodium -) 2 mg PO Q8H PRN PRN Reason: DIARRHEA Last Admin: 04/30/19 21:46 Dose: 2 mg Methylprednisolone Sodium Succinate (Solu-Medrol -) 40 mg IVPUSH DAILY [facility] Last Admin: 05/01/19 10:36 Dose: Not Given Montelukast Sodium (Singulair -) 10 mg PO HS [facility] Last Admin: 04/30/19 21:46 Dose: 10 mg Pantoprazole Sodium (Protonix -) 40 mg PO DAILY [facility] Last Admin: 05/01/19 09:12 Dose: 40 mg Prochlorperazine Edisylate (Compazine Injection -) 10 mg IVPB Q6H PRN PRN Reason: NAUSEA AND/OR VOMITING A/P Acute Bronchospasm/Acute Asthma Exacerbation - medrol taper, can change to PO prednisone 40mg daily and taper as outpt - inhaled bronchodilators - singulair - outpt PFTs - DVT prophylaxis
[2019-05-01] MEDS: guaiFENesin/CODEINE 10 ML UNIT-DOSE CUPS PO PRN (12:45)
--- NOTE | 2019-05-01 17:24 | PN ---
Progress Note, Physician History of Present Illness: Pt states she is feeling better but still with occasional chest tightness. No productive cough, remains afebrile, alert, without distress. - Current Medication List Current Medications: Active Medications Acetaminophen (Tylenol -) 650 mg PO Q6H PRN PRN Reason: PAIN LEVEL 1 - 3 Last Admin: 05/01/19 11:44 Dose: 650 mg Benzocaine/Menthol (Cepacol Lozenge -) 1 each MM Q4H PRN PRN Reason: SORE THROAT Last Admin: 04/30/19 21:47 Dose: 1 each Guaifenesin/Codeine Phosphate (Robitussin Ac -) 10 ml PO Q4H PRN PRN Reason: COUGH Last Admin: 05/01/19 12:45 Dose: 10 ml Ipratropium [place] (Atrovent 0.02% Nebulizer -) 1 amp NEB RTID [facility] Last Admin: 05/01/19 14:01 Dose: 1 amp Levalbuterol HCl (Xopenex) 0.63 mg IH RTID [facility] Last Admin: 05/01/19 14:01 Dose: 0.63 mg Loperamide HCl (Imodium -) 2 mg PO Q8H PRN PRN Reason: DIARRHEA Last Admin: 04/30/19 21:46 Dose: 2 mg Methylprednisolone Sodium Succinate (Solu-Medrol -) 40 mg IVPUSH DAILY [facility] Last Admin: 05/01/19 10:36 Dose: Not Given Montelukast Sodium (Singulair -) 10 mg PO HS [facility] Last Admin: 04/30/19 21:46 Dose: 10 mg Pantoprazole Sodium (Protonix -) 40 mg PO DAILY [facility] Last Admin: 05/01/19 09:12 Dose: 40 mg Prochlorperazine Edisylate (Compazine Injection -) 10 mg IVPB Q6H PRN PRN Reason: NAUSEA AND/OR VOMITING - Objective Vital Signs: Vital Signs Temperature 97.8 F 05/01/19 15:00 Pulse Rate 74 05/01/19 15:00 Respiratory Rate 18 05/01/19 15:00 Blood Pressure 128/68 05/01/19 15:00 O2 Sat by Pulse Oximetry (%) 97 05/01/19 10:00 Constitutional: Yes: No Distress, Calm Cardiovascular: Yes: Regular Rate and Rhythm Respiratory: Yes: CTA Bilaterally Gastrointestinal: Yes: Normal Bowel Sounds, Soft Genitourinary: Yes: WNL Extremities: Yes: WNL Integumentary: Yes: WNL Neurological: Yes: Alert, Oriented Labs: CBC, BMP 05/01/19 05:40 05/01/19 05:40 Microbiology 04/26/19 11:25 Blood - Peripheral Venous Blood Culture - Final NO GROWTH AFTER 5 DAYS INCUBATION 04/26/19 11:35 Blood - Peripheral Venous Blood Culture - Final NO GROWTH AFTER 5 DAYS INCUBATION 04/30/19 10:45 Stool Clostridioides difficile Antigen - Final 04/30/19 10:45 Stool Clostridioides difficile Toxin Assay - Final 04/26/19 15:40 Urine For Antigen Detection Legionella Antigen - Final 04/26/19 15:40 Urine For Antigen Detection Streptococcus pneumoniae Antigen (M - Final 04/26/19 09:40 Urine - Urine Clean Catch Urine Culture - Final NO GROWTH OBTAINED - ....Imaging Chest X-ray: Report Reviewed Problem List - Problems (1) Asthma exacerbation Code(s): J45.901 - UNSPECIFIED ASTHMA WITH (ACUTE) EXACERBATION Qualifiers: Asthma severity: moderate Asthma persistence: unspecified Qualified Code( s): J45.901 - Unspecified asthma with (acute) exacerbation (2) Shortness of breath Code(s): R06.02 - SHORTNESS OF BREATH Assessment/Plan Asthmatic bronchitis Leukocytosis -- clinically improving, monitor off antibiotics -- wbc elevated but stable, on steroids -- continue bronchodilators -- Pulmonary following
[2019-05-01] MEDS: MONTELUKAST NA 10 MG TABLET PO SCH (21:04)
[2019-05-01] MEDS: BENZOCAINE/MENTH/CETYLPYRD CL 1 EACH LOZENGE MM PRN (21:05)
[2019-05-02] MEDS: guaiFENesin/CODEINE 10 ML UNIT-DOSE CUPS PO PRN (01:04)
[2019-05-02 06:32] LABS: BASO % 0.1 % (0-2.0); EOS % 0.2 % (0-4.5); HEMATOCRIT 39.4 % (32.4-45.2); LYMPH % 23.6 % (8-40); MCH 29.9 pg (25.7-33.7); MCHC 32.9 g/dl (32.0-36.0); MEAN CELL VOLUME 90.8 fl (80-96); MEAN PLT VOLUME 6.5 fl (7.5-11.1); MONO % 6.8 % (3.8-10.2); NEUT % 69.3 % (42.8-82.8); PLATELET COUNT 391 K/MM3 (134-434); RBC 4.34 M/mm3 (3.60-5.2); RDW 13.7 % (11.6-15.6); WHITE BLOOD COUNT 20.5 K/mm3 (4.0-10.0)
[2019-05-02 07:26] LABS: ALBUMIN 3.3 g/dl (3.4-5.0); BILIRUBIN,TOTAL 0.3 mg/dL (0.2-1); BLOOD UREA NITROGEN 22.5 mg/dL (7-18); CALCIUM 8.3 mg/dL (8.5-10.1); CREATININE 0.6 mg/dL (0.55-1.3); MAGNESIUM 2.9 mg/dL (1.8-2.4); POTASSIUM 4.3 mmol/L (3.5-5.1); TOT PROT 6.6 g/dl (6.4-8.2)
[2019-05-02] MEDS ORDERED: PT OWN MED DRAWER 7, Y5N ONE (07:54)
[2019-05-02] MEDS ORDERED: ALBUTEROL SO4 8 GM HFA INHALER IH PRN (07:54)
--- NOTE | 2019-05-02 08:03 | DS ---
Physical Exam: SUBJECTIVE: Patient seen and examined 18 y/o F with PMH of anemia presented to the ED because of SOB. Per Patient, she has been having difficulty breathing for the past 3 weeks since she caught a cold from her mother and son who were recently sick with Bronchitis and PNA. When SOB did not improve, she went to [facility] where they diagnosed her with PNA and discharged her on a course of augmentin (was scheduled to take last dose friday). Pt also have been experiencing nausea accompanied by NBNB vomiting consistently with food then eventually on empty stomach for the last 3 days. Pt also complaind of a pressure like chest pain, non radiating and intermittent in nature rating 8/10 in severity. Codeine temporarely relieved the pain but deep inspiration makes it worse and induces cough spells. Pt recently visited [place] a few weeks ago. OBJECTIVE: Vital Signs Period Temp Pulse Resp BP Sys/Crowder Pulse Ox Last 24 Hr 97.8 F-98.4 F 74-99 18-20 102-128/52-74 97-98 PHYSICAL EXAM Constitutional: Yes: Well Nourished, No Distress, Calm, Anxious (at times) Eyes: Yes: WNL, Conjunctiva Clear, EOM Intact HENT: Yes: WNL, Atraumatic, Normocephalic. Throat red, with white exudate noted to left pharynx Neck: Yes: WNL, Supple, Trachea Midline Cardiovascular: Yes: Regular Rate and Rhythm, Tachycardia Respiratory: Yes: WNL, Regular, no wheezing Gastrointestinal: Yes: WNL, Normal Bowel Sounds ...Rectal Exam: Yes: Deferred Genitourinary: Yes: WNL Breast(s): Yes: WNL Musculoskeletal: Yes: WNL Extremities: Yes: WNL Edema: No Peripheral Pulses WNL: No Peripheral Pulses: Left Radial: 2+, Right Radial: 2+, Left Doralis Pedis: 2+, Right Dorsalis Pedis: 2+, Left Femoral: 2+, Right Femoral: 2+ Integumentary: Yes: Body Piercing, Tattoos Neurological: Yes: WNL, Alert, Oriented ...Motor Strength: WNL Psychiatric: Yes: WNL LABS Laboratory Results - last 24 hr 05/01/19 05/02/19 05/02/19 05:40 05:54 05:54 WBC 20.5 H RBC 4.34 Hgb 13.0 Hct 39.4 MCV 90.8 MCH 29.9 MCHC 32.9 RDW 13.7 Plt Count 391 MPV 6.5 L Absolute Neuts (auto) 14.2 H Neutrophils % 69.3 D Neutrophils % (Manual) 81.7 Band Neutrophils % 0.0 Lymphocytes % 23.6 D Lymphocytes % (Manual) 15.1 D Monocytes % 6.8 Monocytes % (Manual) 3 L Eosinophils % 0.2 D Eosinophils % (Manual) 0.0 Basophils % 0.1 Basophils % (Manual) 0.0 Myelocytes % (Man) 0 Promyelocytes % (Man) 0 Blast Cells % (Manual) 0 Nucleated RBC % 0 Metamyelocytes 0 Hypochromia 0 Platelet Estimate Normal Polychromasia 0 Poikilocytosis 1+ Anisocytosis 2+ Microcytosis 2+ Macrocytosis 0 Spherocytes 1+ Tear Drop Cells 1+ Edison Cells 1+ Sodium 138 Potassium 4.3 Chloride 103 Carbon Dioxide 26 Anion Gap 8 BUN 22.5 H Creatinine 0.6 Est GFR (CKD-EPI)AfAm 153.15 Est GFR (CKD-EPI)NonAf 132.14 Random Glucose 93 Calcium 8.3 L Magnesium 2.9 H Total Bilirubin 0.3 AST 8 L ALT 24 Alkaline Phosphatase 82 Total Protein 6.6 Albumin 3.3 L HOSPITAL COURSE: Date of Admission:04/25/19 Date of Discharge: 05/02/19 Labs: CBC, BMP 05/01/19 05:40 05/01/19 05:40 - ....Imaging Cat Scan: Report Reviewed no pneumonia Problem List - Problems (1) Asthma exacerbation Assessment/Plan: CT without acute pathology/no pna/consolidation c/w Antitussives q4h followed mby pulmonary while in hosital continue with PO steroid taper cepacol lozenges Code(s): J45.901 - UNSPECIFIED ASTHMA WITH (ACUTE) EXACERBATION Qualifiers: Asthma severity: moderate Asthma persistence: unspecified Qualified Code( s): J45.901 - Unspecified asthma with (acute) exacerbation (2) Pneumonia Assessment/Plan: no pna on CT chest Treated with IV steroids then converted to PO with a taper Course of Zsyn and azithromycin completeted Code(s): J18.9 - PNEUMONIA, UNSPECIFIED ORGANISM Qualifiers: Pneumonia type: due to unspecified organism Laterality: right Lung location: lower lobe of lung Qualified Code(s): J18.1 - Lobar pneumonia, unspecified organism (3) Prophylactic measure Assessment/Plan: FEN regular diet DVT ambulation Dispo discharge to home without services needed Code(s): Z29.9 - ENCOUNTER FOR PROPHYLACTIC MEASURES, UNSPECIFIED (4) Shortness of breath Assessment/Plan: PO steroid taper cough suppressant q4H IH bronchodilators Code(s): R06.02 - SHORTNESS OF BREATH (5) Need for emotional support Assessment/Plan: emotional support provided, very anxious at times encourage ambulation and deep breathing exercises Code(s): R45.89 - OTHER SYMPTOMS AND SIGNS INVOLVING EMOTIONAL STATE (6) Diarrhea Assessment/Plan: resolved with immodium. r/t abx Code(s): R19.7 - DIARRHEA, UNSPECIFIED (7) Acute pharyngitis Assessment/Plan: throat red without white exudate to left pharynx completed course of abx gargle with warm NS q 4 h Code(s): J02.9 - ACUTE PHARYNGITIS, UNSPECIFIED medically cleared for discharge home Minutes to complete discharge: 45 Discharge Summary Problems reviewed: Yes Reason For Visit: EXACERBATION OF ASTHMA,PNEUMONIA Current Active Problems Acute pharyngitis (Acute) Asthma exacerbation (Acute) Diarrhea (Acute) Need for emotional support (Acute) Pneumonia (Acute) Prophylactic measure (Acute) Shortness of breath (Acute) Hospital Course: - Problems (1) Asthma exacerbation Assessment/Plan: CT without acute pathology/no pna/consolidation c/w Antitussives q4h followed mby pulmonary while in hosital continue with PO steroid taper cepacol lozenges Code(s): J45.901 - UNSPECIFIED ASTHMA WITH (ACUTE) EXACERBATION Qualifiers: Asthma severity: moderate Asthma persistence: unspecified Qualified Code( s): J45.901 - Unspecified asthma with (acute) exacerbation (2) Pneumonia Assessment/Plan: no pna on CT chest Treated with IV steroids then converted to PO with a taper Course of Zsyn and azithromycin completeted Code(s): J18.9 - PNEUMONIA, UNSPECIFIED ORGANISM Qualifiers: Pneumonia type: due to unspecified organism Laterality: right Lung location: lower lobe of lung Qualified Code(s): J18.1 - Lobar pneumonia, unspecified organism (3) Prophylactic measure Assessment/Plan: FEN regular diet DVT ambulation Dispo discharge to home without services needed Code(s): Z29.9 - ENCOUNTER FOR PROPHYLACTIC MEASURES, UNSPECIFIED (4) Shortness of breath Assessment/Plan: PO steroid taper cough suppressant q4H IH bronchodilators Code(s): R06.02 - SHORTNESS OF BREATH (5) Need for emotional support Assessment/Plan: emotional support provided, very anxious at times encourage ambulation and deep breathing exercises Code(s): R45.89 - OTHER SYMPTOMS AND SIGNS INVOLVING EMOTIONAL STATE (6) Diarrhea Assessment/Plan: resolved with immodium. r/t abx Code(s): R19.7 - DIARRHEA, UNSPECIFIED (7) Acute pharyngitis Assessment/Plan: throat red without white exudate to left pharynx completed course of abx gargle with warm NS q 4 h Code(s): J02.9 - ACUTE PHARYNGITIS, UNSPECIFIED medically cleared for discharge home Condition: Improved - Instructions Diet, Activity, Other Instructions: PREDNISONE TAPER 05/02 40 mg (4 pills) (4- 10mg tablets) at 6pm tonight 05/03 40 mg(4 pills) (4- 10mg tablets) 05/04 40 mg (4 pills) (4- 10mg tablets) 30 40 mg(4 pills) (4- 10mg tablets) 05/06 30 mg(3 pills) (3- 10mg tablets) 11/1 30 mg(3 pills) (3- 10mg tablets) 11/2 30 mg(3 pills) (3- 10mg tablets) 11/3 20 mg (2 pills) (2- 10mg tablets) 11/4 20 mg(2 pills) (2- 10mg tablets) 11/5 20 mg (2 pills) (2- 10mg tablets) 11/6 10 mg (1 pills) (1- 10mg tablets) 11/7 10 mg (1 pills) (1- 10mg tablets) 11/8 10 mg(1 pills) (1- 10mg tablets) 11/9 5 mg (1/2 pils) (1/2- 10mg tablets) 0 Gargle with warm water with a teaspoon of salt every 4-6 hours for 1 week. Take all the prednisone until it is finished. Use the albuterol inhaler every 4 hours and the atrovent every 6 hours around the clock for 10 days. Then you can used them as needed if you feel yourself wheezing. If you are still wheezing after you take the albuterol repeat the dose in 1/2 hour and call your primary care provider. Take the protonix once a day while your are taking the prednisone then you can stop it. Take the sinqular every day take the cough medication as needed at bedtime or every 6 hours. Do NOT take more than 10ml at a time or more than 4 times a day If youre breathing gets worse return back to the Emergency Department. Thank you for allowing me to care for you and best wishes in your recovery. Referrals: Fortunato Knight MD [Staff Physician] - 2 Weeks (Call for appointment [facility] Pulmonary function testing at appointment) - Home Medications Comprehensive Discharge Medication List: Ambulatory Orders Etonogestrel [Nexplanon] 68 mg SQ DAILY 04/25/19 Acetaminophen [Tylenol .Regular Strength -] 650 mg PO Q6H PRN tablet 05/02/19 Guaifenesin AC [Robitussin AC -] 10 ml PO Q4H PRN #1 ud MDD 6 05/02/19 Ipratropium [place] [Atrovent Hfa] 12.9 gm IH QID #1 hfa.aer.ad 05/02/19 Montelukast Na [Singulair -] 10 mg PO HS #30 tablet 05/02/19 Pantoprazole Sodium [Protonix -] 40 mg PO DAILY #30 tablet.ec 05/02/19 predniSONE [Deltasone -] 10 mg PO DAILY #30 tablet 05/02/19 Prescription Drug Monitoring Program (I-STOP) results: I-STOP reviewed and no issues identified Problem List - Problems (1) Asthma exacerbation Code(s): J45.901 - UNSPECIFIED ASTHMA WITH (ACUTE) EXACERBATION Qualifiers: Asthma severity: moderate Asthma persistence: unspecified Qualified Code( s): J45.901 - Unspecified asthma with (acute) exacerbation (2) Pneumonia Code(s): J18.9 - PNEUMONIA, UNSPECIFIED ORGANISM Qualifiers: Pneumonia type: due to unspecified organism Laterality: right Lung location: lower lobe of lung Qualified Code(s): J18.1 - Lobar pneumonia, unspecified organism (3) Prophylactic measure Code(s): Z29.9 - ENCOUNTER FOR PROPHYLACTIC MEASURES, UNSPECIFIED (4) Shortness of breath Code(s): R06.02 - SHORTNESS OF BREATH (5) Need for emotional support Code(s): R45.89 - OTHER SYMPTOMS AND SIGNS INVOLVING EMOTIONAL STATE (6) Diarrhea Code(s): R19.7 - DIARRHEA, UNSPECIFIED (7) Acute pharyngitis Code(s): J02.9 - ACUTE PHARYNGITIS, UNSPECIFIED This patient is new to me today: No Emergency Visit: Yes ED Registration Date: 04/25/19 Care time: The patient presented to the Emergency Department on the above date and was hospitalized for further evaluation of their emergent condition. Critical Care patient: No - Discharge Referral Referred to [facility] No
[2019-05-02] MEDS: IPRATROPIUM BR 0.02% 0.5 MG/2.5 ML VIAL.NEB. NEB SCH (09:00)
[2019-05-02] MEDS: LEVALBUTEROL HCL 0.63 MG/3 ML VIAL.NEB. IH SCH (09:00)
[2019-05-02] MEDS: PANTOPRAZOLE 40 MG TABLET (FP) PO SCH (09:25)
[2019-05-02 09:31] VITALS: BP 127/59; PULSE 104; TEMP 98.6
[2019-05-02 09:43] LABS: ANISOCYTOSIS 1+; MACROCYTOSIS 0; PLATELET ESTIMATE NORMAL
[2019-05-02] MEDS ORDERED: predniSONE 20 MG TABLET (UD) PO SCH (10:00)
[2019-05-02] MEDS: BENZOCAINE/MENTH/CETYLPYRD CL 1 EACH LOZENGE MM PRN (10:12)
== END 2019-05-02 11:08 | disposition home or self-care (01) | DRG 141 ==
LOC: JER 02:09 → JERBED 04:15 → J7W 09:13 → J4S 04-26 16:50
PROVIDERS: ADMIT Internal Medicine; ATTEND Nurse Practitioner Acute Care
DX: J45.901 Unspecified asthma with (acute) exacerbation (principal); D64.9 Anemia, unspecified; R00.0 Tachycardia, unspecified; F41.9 Anxiety disorder, unspecified; J02.0 Streptococcal pharyngitis; R19.7 Diarrhea, unspecified; D72.829 Elevated white blood cell count, unspecified
CPT/HCPCS: 36415; 71045-TC-FY; 71250-TC; 80048; 80053; 81003; 83735; 84100; 84703; 85025; 85379; 87040; 87086; 87324; 87449; 87899; 93005; 93010; 94640; 94664; 99284-25

== ENCOUNTER 2019-09-20 20:51 | Emergency (ER) | payer OTHER ==
[2019-09-20 20:58] VITALS: BP 100/80; PULSE 90; TEMP 98.1; BMI 27.4
--- NOTE | 2019-09-20 21:26 | PDOC ---
History of Present Illness - General Chief Complaint: Sore Throat Stated Complaint: SORE THROAT Time Seen by Provider: 09/20/19 21:16 - History of Present Illness Initial Comments: 09/20/19 21:26 19-year-old female without comorbidities presents for sore throat and fever x3 days Past History - Past Medical History Allergies/Adverse Reactions: Allergies Allergy/AdvReac Type Severity Reaction Status Date / Time No Known Allergies Allergy Verified 09/20/19 20:58 Home Medications: Ambulatory Orders Etonogestrel [Nexplanon] 68 mg SQ DAILY 04/25/19 Acetaminophen [Tylenol .Regular Strength -] 650 mg PO Q6H PRN tablet 05/02/19 Albuterol Sulfate Inhaler - [Ventolin HFA Inhaler -] 2 puff IH Q4H PRN #1 inhaler 05/02/19 Guaifenesin AC [Robitussin AC -] 10 ml PO Q4H PRN #1 ud MDD 6 05/02/19 Guaifenesin AC [Robitussin AC -] 10 ml PO Q6H #1 each MDD 4 05/02/19 Ipratropium [place] [Atrovent Hfa] 12.9 gm IH QID #1 hfa.aer.ad 05/02/19 Montelukast Na [Singulair -] 10 mg PO HS #30 tablet 05/02/19 Pantoprazole Sodium [Protonix -] 40 mg PO DAILY #30 tablet.ec 05/02/19 predniSONE [Deltasone -] 10 mg PO DAILY #30 tablet 05/02/19 Anemia: Yes COPD: No Thyroid Disease: No - Reproductive History (#): 1 - Immunization History Td Vaccination: Yes Immunization Up to Date: Yes - Psycho Social/Smoking Cessation Hx Smoking Status: No Smoking History: Never smoked Have you smoked in the past 12 months: No Number of Cigarettes Smoked Daily: 0 Cigars Per Day: 0 Information on smoking cessation initiated: No Hx Alcohol Use: No Drug/Substance Use Hx: No Substance Use Type: Marijuana Hx Substance Use Treatment: No Review of Systems - Review of Systems Constitutional: Yes: Fever HEENTM: Yes: Throat Pain *Physical Exam - Vital Signs Last Vital Signs Temp Pulse Resp BP Pulse Ox 98.1 F 90 20 100/80 99 09/20/19 20:56 09/20/19 20:56 09/20/19 20:56 09/20/19 20:56 09/20/19 20:56 - Physical Exam 09/20/19 21:26 GENERAL: The patient is awake, alert, and fully oriented, in no acute distress. HEAD: Normal with no signs of trauma. EYES: sclera anicteric, conjunctiva clear. ENT: Ears normal tympanic membranes normal oropharynx clear uvula midline NECK: Normal range of motion LUNGS: Breath sounds equal, clear to auscultation bilaterally. No wheezes, and no crackles. HEART: S1 and S2 without murmur, rub or gallop. ABDOMEN: Soft, nontender, normoactive bowel sounds. No guarding, no rebound. No masses. EXTREMITIES: Normal range of motion, no edema. No clubbing or cyanosis. No cords, erythema, or tenderness. NEUROLOGICAL: Cranial nerves II through XII grossly intact. PSYCH: Normal mood, normal affect. SKIN: Warm, Dry, normal turgor, no rashes or lesions noted. Medical Decision Making - Medical Decision Making 09/20/19 21:51 Negative strep supportive care for viral upper respiratory infection I have reviewed the pathophysiology with the patient. They are in agreement with the treatment plan all questions were answered to their satisfaction. Understanding for follow-up without fail was also conveyed to the patient. Again they are in agreement. Discharge - Discharge Information Problems reviewed: Yes Clinical Impression/Diagnosis: Viral URI with cough Condition: Stable Disposition: HOME - Admission No - Follow up/Referral Referrals: Dian Florez MD [Staff Physician] - - Patient Discharge Instructions Additional Instructions: Supportive care. Maintain hydration with Pedialyte. Tylenol and Motrin as directed for fever and body aches. Return to the emergency room for worsening symptoms. And without fail follow-up with your primary care physician in 1 to 2 days for further evaluation and treatment options. - Post Discharge Activity
== END 2019-09-20 22:13 | disposition home or self-care (01) ==
LOC: JERFT 20:51
DX: J06.9 Acute upper respiratory infection, unspecified (principal); B97.89 Other viral agents as the cause of diseases classified elsewhere
CPT/HCPCS: 87070; 87880; 99282-25

== ENCOUNTER 2020-01-24 20:49 | Emergency (ER) | payer OTHER ==
[2020-01-24 20:56] VITALS: BMI 25.0
[2020-01-24] MEDS ORDERED: SODIUM CHLORIDE 1,000 ML IV STA (20:56)
[2020-01-24] MEDS ORDERED: ACETAMINOPHEN 1000 MG/100 ML VIAL (NON FORMULARY) IVPB ONE (20:57)
--- NOTE | 2020-01-24 20:58 | PDOC ---
Rapid Medical Evaluation Chief Complaint: Urinary Problem Time Seen by Provider: 01/24/20 20:53 Medical Evaluation: Allergies Allergy/AdvReac Type Severity Reaction Status Date / Time No Known Allergies Allergy Verified 09/20/19 20:58 01/24/20 20:53 19 year old female x 2 weeks hematuria, dysuria, c/o b/l flank pain. seen at urgent care today and was given one dose of cipro. patient here with worsening abdominal and back pain. Last Vital Signs Temp Pulse Resp BP Pulse Ox 99.3 F 125 H 19 125/79 97 01/24/20 20:52 01/24/20 20:52 01/24/20 20:52 01/24/20 20:52 01/24/20 20:52 Pe: patient alert crying. tender lower abdomen A: pyelonephritis? P: cbc cmp ua urine culture blood culture Insert IV IVF 01/24/20 20:58 Discharge Disposition - Diagnosis Pyelonephritis Abdominal pain Qualifiers: Abdominal location: lower abdomen, unspecified Qualified Code(s): R10.30 - Lower abdominal pain, unspecified - Referrals - Patient Instructions - Post Discharge Activity
[2020-01-24] MEDS ORDERED: ONDANSETRON 4 MG/2 ML VIAL IVPB ONE (21:00)
[2020-01-24 21:52] LABS: BASO % 0.3 % (0-2.0); EOS % 0.4 % (0-4.5); HEMATOCRIT 39.5 % (32.4-45.2); HEMOGLOBIN 13.1 GM/dL (10.7-15.3); LYMPH % 35.3 % (8-40); MCH 30.8 pg (25.7-33.7); MEAN CELL VOLUME 93.3 fl (80-96); MONO % 4.7 % (3.8-10.2); NEUT % 59.3 % (42.8-82.8); PLATELET COUNT 270 K/MM3 (134-434); RBC 4.24 M/mm3 (3.60-5.2); RDW 13.6 % (11.6-15.6); WHITE BLOOD COUNT 9.8 K/mm3 (4.0-10.0)
[2020-01-24 22:20] LABS: ALBUMIN 4.7 g/dl (3.4-5.0); BILIRUBIN,TOTAL 0.7 mg/dL (0.2-1); BLOOD UREA NITROGEN 10.1 mg/dL (7-18); CALCIUM 9.5 mg/dL (8.5-10.1); CREATININE 0.8 mg/dL (0.55-1.3); POTASSIUM 3.6 mmol/L (3.5-5.1); TOT PROT 7.8 g/dl (6.4-8.2)
[2020-01-24 22:36] LABS: EPI CELLS >36 /uL (0-25.1); HYALINE CASTS 54 /uL (0-3.1); PH,URINE 5.5 (5.0-8.0); URINE APPEARANCE CLOUDY; URINE BILIRUBIN 1+ (NEGATIVE); URINE COLOR DK YELLOW; URINE GLUCOSE (UA) NEGATIVE (NEGATIVE); URINE KETONE NEGATIVE (NEGATIVE); URINE LEUK ESTERASE 1+ (NEGATIVE); URINE NITRITE POSITIVE (NEGATIVE); URINE PROTEIN 3+ (NEGATIVE); URINE RBC 18 /uL (0-23.9); URINE WBC 600 /uL (0-25.8)
[2020-01-24] MEDS ORDERED: ACETAMINOPHEN INJECTION 100 ML IVPB ONE (22:46)
[2020-01-24] MEDS ORDERED: CEFTRIAXONE 1,000 MG in DEXTROSE 5%-WATER - 50 ML IVPB ONE (23:21)
--- NOTE | 2020-01-24 23:21 | PDOC ---
History of Present Illness - General Chief Complaint: Pain Stated Complaint: SENT BY DOCTOR Time Seen by Provider: 01/24/20 20:53 History Source: Patient - History of Present Illness Initial Comments: 01/25/20 00:55 19-year-old female reports that for the last 2 weeks she has been having hematuria, dysuria and frequency with flank pain. Patient reports she has been taking Azo at home. Pain progressed and patient was seen in urgent care yesterday and was started on Cipro took 1 dose. Patient reports that she has been feeling nausea one episode of vomiting and worsening abdominal pain. Denies fevers. Reports chills. LMP: 01/06/20 no pmhx Past History - Medical History Allergies/Adverse Reactions: Allergies Allergy/AdvReac Type Severity Reaction Status Date / Time No Known Allergies Allergy Verified 09/20/19 20:58 Home Medications: Ambulatory Orders Etonogestrel [Nexplanon] 68 mg SQ DAILY 04/25/19 Acetaminophen [Tylenol .Regular Strength -] 650 mg PO Q6H PRN tablet 05/02/19 Albuterol Sulfate Inhaler - [Ventolin HFA Inhaler -] 2 puff IH Q4H PRN #1 inhaler 05/02/19 Guaifenesin AC [Robitussin AC -] 10 ml PO Q4H PRN #1 ud MDD 6 05/02/19 Guaifenesin AC [Robitussin AC -] 10 ml PO Q6H #1 each MDD 4 05/02/19 Ipratropium [place] [Atrovent Hfa] 12.9 gm IH QID #1 hfa.aer.ad 05/02/19 Montelukast Na [Singulair -] 10 mg PO HS #30 tablet 05/02/19 Pantoprazole Sodium [Protonix -] 40 mg PO DAILY #30 tablet.ec 05/02/19 predniSONE [Deltasone -] 10 mg PO DAILY #30 tablet 05/02/19 Cefdinir 300 mg PO BID #20 capsule 01/25/20 Anemia: Yes COPD: No Thyroid Disease: No - Reproductive History (#): 1 - Immunization History Td Vaccination: Yes Immunization Up to Date: Yes - Psycho-Social/Smoking History Smoking Status: No Smoking History: Never smoked Have you smoked in the past 12 months: No Number of Cigarettes Smoked Daily: 0 Cigars Per Day: 0 - Substance Abuse Hx (Audit-C & DAST Scrn) How often the patient has a drink containing alcohol: Never Score: In Men: 4 or > Positive; In Women: 3 or > Positive: 0 Screen Result (Pos requires Nsg. Audit-10AR): Negative In the last yr the pt used illegal drug/Rx for NonMed reason: No Score: Yes response is considered Positive: 0 Screen Result (Positive result requires Nsg. DAST-10): Negative Review of Systems - Review of Systems Able to Perform ROS?: Yes Is the patient limited French proficient: No Constitutional: Yes: Chills. No: Symptoms Reported, See HPI, Diaphoresis, Fever, Loss of Appetite, Malaise, Night Sweats, Weakness, Weight Stable, Unintentional Wgt. Loss, Unexplained wgt Loss, Other ABD/GI: Yes: Nausea, Vomiting, Abdominal cramping : Yes: Dysuria, Frequency, Flank Pain, Hematuria *Physical Exam - Vital Signs Last Vital Signs Temp Pulse Resp BP Pulse Ox 99.3 F 125 H 19 125/79 97 01/24/20 20:52 01/24/20 20:52 01/24/20 20:52 01/24/20 20:52 01/24/20 20:52 - Physical Exam General Appearance: Yes: Appropriately Dressed Respiratory/Chest: positive: Lungs Clear, Normal Breath Sounds Gastrointestinal/Abdominal: positive: Normal Bowel Sounds, Tender (lower abdomen > upper abdomen. generalized tenderness), Soft Musculoskeletal: positive: Normal Inspection Extremity: positive: Normal Capillary Refill, Normal Inspection, Normal Range of Motion Integumentary: positive: Normal Color, Dry, Warm Neurologic: positive: Fully Oriented, Alert, Normal Mood/Affect ED Treatment Course - LABORATORY CBC & Chemistry Diagram: 01/24/20 21:15 01/24/20 21:15 - ADDITIONAL ORDERS Additional order review: Laboratory Results 01/24/20 01/24/20 21:15 21:13 Sodium 139 Potassium 3.6 Chloride 106 Carbon Dioxide 25 Anion Gap 8 BUN 10.1 Creatinine 0.8 Est GFR (CKD-EPI)AfAm 123.01 Est GFR (CKD-EPI)NonAf 106.13 Random Glucose 127 H Calcium 9.5 Total Bilirubin 0.7 AST 11 L ALT 15 Alkaline Phosphatase 64 Total Protein 7.8 Albumin 4.7 Urine Color Dk yellow Urine Appearance Cloudy Urine pH 5.5 Ur Specific Helper 1.028 Urine Protein 3+ H Urine Glucose (UA) Negative Urine Ketones Negative Urine Blood 1+ H Urine Nitrite Positive H Urine Bilirubin 1+ H Urine Urobilinogen 1.0 Ur Leukocyte Esterase 1+ H Urine WBC (Auto) 600 Urine RBC (Auto) 18 Urine Casts (Auto) 54 U Epithel Cells (Auto) >36 01/24/20 21:15 RBC 4.24 MCV 93.3 MCHC 33.0 RDW 13.6 MPV 8.0 Neutrophils % 59.3 Lymphocytes % 35.3 D Monocytes % 4.7 Eosinophils % 0.4 Basophils % 0.3 - Medications Given in the ED: ED Medications Discontinued Medications Generic Name Dose Route Start Last Admin Trade Name Jacksonq PRN Reason Stop Dose Admin Acetaminophen 1,000 mg 01/24/20 20:57 01/24/20 22:59 Ofirmev Injection - IVPB 01/24/20 20:58 1,000 mg ONCE ONE Administration Sodium Chloride 1,000 mls @ 1,000 mls/hr 01/24/20 20:56 01/24/20 22:58 Normal Saline - IV 01/24/20 21:55 1,000 mls/hr ASDIR STA Administration Ondansetron HCl 4 mg 01/24/20 21:00 01/24/20 22:59 Zofran Injection IVPB 01/24/20 21:01 4 mg ONCE ONE Administration ED Progress Note - Progress Note Progress Note: 01/25/20 00:57 A: abdominal pain; peylonephritis P: cbc cmp blood culture ua urine culture Medical Decision Making - Medical Decision Making 01/25/20 01:50 CTAP: Heterogeneous edema in the bilateral kidneys is most likely consistent with bilateral pyelonephritis. Mild basilar atelectasis. Liver gallbladder pancreas spleen and adrenal glands appear unremarkable. Lack of oral contrast limits this exam. Non-oral contrast evaluation stomach small bowel appear unremarkable. Appendix is not identified. Diverticulosis. Uterus and bladder appear unremarkable. No free air. No free fluid. No abscess. Small umbilical hernia omental fat without incarceration. Mild to moderate degenerative disc disease in the lower lumbar spine. Subcentimeter mesenteric lymph nodes noted. 01/25/20 02:50 patient is now tolerating PO. will d/c home with cephalosporin to continue at home. Discharge - Discharge Information Problems reviewed: Yes Clinical Impression/Diagnosis: Pyelonephritis Abdominal pain Qualifiers: Abdominal location: lower abdomen, unspecified Qualified Code(s): R10.30 - Lower abdominal pain, unspecified Disposition: HOME - Additional Discharge Information Prescriptions: Cefdinir 300 mg PO BID #20 capsule - Follow up/Referral Referrals: Haley Alexis MD [Primary Care Provider] - - Patient Discharge Instructions Patient Printed Discharge Instructions: DI for Kidney Infection Additional Instructions: Drink plenty of fluids Take ibuprofen every 6 hours as needed for pain Take cefdinir as prescribed. return to the ER for any worsening symptoms Follow-up with your primary care doctor as soon as possible. You need to repeat urine test once your antibiotic is completed. We will call you if you're antibiotic needs to be changed. - Post Discharge Activity
[2020-01-25 00:15] LABS: URINE BACTERIA 601.2 /uL (0-1359)
[2020-01-25] MEDS ORDERED: CEFTRIAXONE 1 GM/50 ML BAG ONE (00:47)
[2020-01-25] MEDS ORDERED: SODIUM CHLORIDE 1,000 ML IV SCH (01:00)
[2020-01-25] MEDS ORDERED: KETOROLAC TROMETHAMINE 30 MG/1 ML VIAL IVPUSH ONE (02:35)
[2020-01-25] MEDS ORDERED: KETOROLAC TROMETHAMINE 30 MG/1 ML VIAL ONE (03:25)
[2020-01-25 04:19] VITALS: BP 110/65; PULSE 83; TEMP 98.4
== END 2020-01-25 04:19 | disposition home or self-care (01) ==
LOC: JER 20:49
PROC: 3E0333Z Introduction of Anti-inflammatory into Peripheral Vein, Percutaneous Approach (ICD-10-PCS; principal; 2020-01-24)
PROC: 3E033GC Introduction of Other Therapeutic Substance into Peripheral Vein, Percutaneous Approach (ICD-10-PCS; 2020-01-24)
PROC: 3E0337Z Introduction of Electrolytic and Water Balance Substance into Peripheral Vein, Percutaneous Approach (ICD-10-PCS; 2020-01-24)
DX: N10 Acute pyelonephritis (principal); R10.30 Lower abdominal pain, unspecified
CPT/HCPCS: 36415; 74177-TC; 80053; 81003; 84703; 85025; 87040; 87086; 99285-25; J0131

== ENCOUNTER 2020-09-10 13:34 | Emergency (ER) | payer OTHER ==
[2020-09-10 13:42] VITALS: BMI 25.6
[2020-09-10] MEDS ORDERED: morphine CARPU-JECT 2 MG/1 ML DISP.SYRIN IVPUSH ONE (14:42)
[2020-09-10] MEDS ORDERED: morphine CARPU-JECT 4 MG/1 ML DISP.SYRIN IM ONE (14:52)
[2020-09-10] MEDS ORDERED: morphine SULFATE 4 MG/ML VIAL ONE (14:53)
[2020-09-10 15:25] LABS: HCG,QUALITATIVE URINE Negative
[2020-09-10 15:42] LABS: BASO % 0.3 % (0-2.0); EOS % 0.3 % (0-4.5); HEMATOCRIT 42.1 % (32.4-45.2); HEMOGLOBIN 13.9 GM/dL (10.7-15.3); LYMPH % 24.4 % (8-40); MEAN CELL VOLUME 93.8 fl (80-96); MEAN PLT VOLUME 7.7 fl (7.5-11.1); MONO % 7.2 % (3.8-10.2); NEUT % 67.8 % (42.8-82.8); PLATELET COUNT 286 K/MM3 (134-434); RBC 4.49 M/mm3 (3.60-5.2); RDW 13.5 % (11.6-15.6); WHITE BLOOD COUNT 9.6 K/mm3 (4.0-10.0)
[2020-09-10 15:44] LABS: URINE APPEARANCE CLOUDY; URINE COLOR DK YELLOW; URINE GLUCOSE (UA) NEGATIVE (NEGATIVE)
[2020-09-10 15:45] LABS: URINE BILIRUBIN 1+ (NEGATIVE); URINE KETONE TRACE (NEGATIVE)
[2020-09-10 15:50] LABS: PH,URINE 5.5 (5.0-8.0); URINE NITRITE NEGATIVE (NEGATIVE); URINE PROTEIN 2+ (NEGATIVE)
[2020-09-10 15:51] LABS: EPI CELLS 124.6 /uL (0-25.1); URINE BACTERIA 239.9 /uL (0-1359); URINE LEUK ESTERASE 1+ (NEGATIVE); URINE RBC 95.7 /uL (0-23.9); URINE WBC 19.1 /uL (0-25.8)
[2020-09-10] MEDS ORDERED: SODIUM CHLORIDE 0.9% 500 ML INFUS.BAG IV ONE (15:56)
[2020-09-10 16:01] LABS: POTASSIUM 5.5 mmol/L (3.5-5.1)
[2020-09-10 16:03] LABS: CALCIUM 9.4 mg/dL (8.5-10.1)
[2020-09-10 16:04] LABS: ALBUMIN 4.5 g/dl (3.4-5.0); BLOOD UREA NITROGEN 12.8 mg/dL (7-18)
[2020-09-10 16:07] LABS: CREATININE 0.8 mg/dL (0.55-1.3)
[2020-09-10 16:09] LABS: BILIRUBIN,TOTAL 0.4 mg/dL (0.2-1); TOT PROT 8.2 g/dl (6.4-8.2)
[2020-09-10] MEDS ORDERED: SODIUM CHLORIDE 0.9% 1000 ML INFUS.BAG IV ONE (16:39)
[2020-09-10] MEDS ORDERED: ACETAMINOPHEN 1000 MG/100 ML VIAL (NON FORMULARY) IVPB ONE (16:39)
[2020-09-10] MEDS ORDERED: ACETAMINOPHEN INJECTION 100 ML IVPB ONE (17:03)
[2020-09-10 17:49] VITALS: TEMP 98.1
[2020-09-10] MEDS ORDERED: CEPHALEXIN MONOHYDRATE 500 MG CAPSULE (UD) PO ONE (19:03)
[2020-09-10] MEDS ORDERED: CEPHALEXIN MONOHYDRATE 500 MG CAPSULE (UD) ONE (19:08)
[2020-09-10] MEDS ORDERED: ONDANSETRON 4 MG/2 ML VIAL IVPUSH ONE (19:12)
[2020-09-10] MEDS ORDERED: MAG HYDROX/AL HYDROX/SIMETH 30 ML UNIT-DOSE CUP PO ONE (19:12)
[2020-09-10] MEDS ORDERED: FAMOTIDINE 20 MG/50 ML IVPB 20 MG/50 ML MG IVPB ONE ×2 (19:12→19:17)
[2020-09-10] MEDS ORDERED: KETOROLAC TROMETHAMINE 30 MG/1 ML VIAL IVPUSH ONE (19:13)
[2020-09-10] MEDS ORDERED: MAG HYDROX/AL HYDROX/SIMETH 30 ML UNIT-DOSE CUP ONE (19:17)
[2020-09-10] MEDS ORDERED: ONDANSETRON 4 MG/2 ML VIAL ONE (19:17)
[2020-09-10] MEDS ORDERED: KETOROLAC TROMETHAMINE 30 MG/1 ML VIAL ONE (19:17)
[2020-09-10] MEDS ORDERED: CEFTRIAXONE 1,000 MG in DEXTROSE 5%-WATER - 50 ML IVPB ONE (19:22)
[2020-09-10 19:26] VITALS: BP 102/66; PULSE 93
[2020-09-10] MEDS ORDERED: CEFTRIAXONE 1 GM/50 ML BAG ONE (19:56)
== END 2020-09-10 20:29 | disposition home or self-care (01) ==
LOC: JER 13:34
PROC: 3E0333Z Introduction of Anti-inflammatory into Peripheral Vein, Percutaneous Approach (ICD-10-PCS; principal; 2020-09-10)
PROC: 3E03329 Introduction of Other Anti-infective into Peripheral Vein, Percutaneous Approach (ICD-10-PCS; 2020-09-10)
PROC: 3E0333Z Introduction of Anti-inflammatory into Peripheral Vein, Percutaneous Approach (ICD-10-PCS; 2020-09-10)
PROC: 3E033GC Introduction of Other Therapeutic Substance into Peripheral Vein, Percutaneous Approach (ICD-10-PCS; 2020-09-10)
PROC: 3E023NZ Introduction of Analgesics, Hypnotics, Sedatives into Muscle, Percutaneous Approach (ICD-10-PCS; 2020-09-10)
DX: N30.00 Acute cystitis without hematuria (principal)
CPT/HCPCS: 36415; 74177-TC; 76830-TC; 80053; 81003; 84703; 85025; 87086; 87491; 87591; 99285-25; J0131; Q9967

== ENCOUNTER 2021-04-23 21:45 | Emergency (ER) | payer OTHER ==
[2021-04-23 22:44] LABS: HCG,QUALITATIVE URINE Negative
[2021-04-23 22:50] LABS: EPITHELIAL CELLS FEW /hpf
[2021-04-24] MEDS ORDERED: SODIUM CHLORIDE 1,000 ML IV STA (00:26)
[2021-04-24 01:06] LABS: ALBUMIN 3.7 g/dl (3.4-5.0); BLOOD UREA NITROGEN 20.5 mg/dL (7-18)
[2021-04-24 01:08] LABS: BASO % 0.4 % (0-2.0); EOS % 0.7 % (0-4.5); HEMATOCRIT 36.6 % (32.4-45.2); HEMOGLOBIN 12.8 GM/dL (10.7-15.3); LYMPH % 33.6 % (8-40); MCH 32.4 pg (25.7-33.7); MCHC 35.1 g/dl (32.0-36.0); MEAN CELL VOLUME 92.3 fl (80-96); MEAN PLT VOLUME 6.9 fl (7.5-11.1); MONO % 6.2 % (3.8-10.2); NEUT % 59.1 % (42.8-82.8); PLATELET COUNT 308 10^3/uL (134-434); RBC 3.96 M/mm3 (3.60-5.2); RDW 12.9 % (11.6-15.6)
[2021-04-24 01:09] LABS: CREATININE 0.5 mg/dL (0.55-1.3)
[2021-04-24 01:11] LABS: BILIRUBIN,TOTAL 0.4 mg/dL (0.2-1); TOT PROT 7.9 g/dl (6.4-8.2)
[2021-04-24] MEDS ORDERED: CLINDAMYCIN HCL 150 MG CAPSULE (FP) PO ONE (02:18)
[2021-04-24] MEDS ORDERED: CLINDAMYCIN HCL 150 MG CAPSULE (FP) ONE (02:31)
== END 2021-04-24 02:42 | disposition home or self-care (01) ==
LOC: FER 21:45
PROC: 3E0337Z Introduction of Electrolytic and Water Balance Substance into Peripheral Vein, Percutaneous Approach (ICD-10-PCS; principal; 2021-04-23)
DX: R10.2 Pelvic and perineal pain (principal)
CPT/HCPCS: 36415; 74177-TC; 76830-TC; 80053; 81003; 81015; 83690; 84703; 85025; 87491; 87591; 99284-25; Q9967

== ENCOUNTER 2021-06-26 11:16 | Emergency (ER) | payer OTHER ==
[2021-06-26 11:21] VITALS: BP 128/89; PULSE 98; TEMP 98; BMI 28.3
[2021-06-26] MEDS ORDERED: ACETAMINOPHEN 325 MG TABLET (FP) PO ONE (11:30)
[2021-06-26] MEDS ORDERED: ACETAMINOPHEN 325 MG TABLET (FP) ONE (11:32)
== END 2021-06-26 12:35 | disposition home or self-care (01) ==
LOC: FER 11:16
DX: J06.9 Acute upper respiratory infection, unspecified (principal); R05.9 Cough, unspecified
CPT/HCPCS: 71046-TC-FY; 87804; 87807; 99284-25; C9803; U0003; U0005

== ENCOUNTER 2021-08-25 00:22 | Emergency (ER) | payer OTHER ==
[2021-08-25 00:37] VITALS: BP 123/70; PULSE 83; TEMP 98.9; BMI 24.7
[2021-08-25] MEDS ORDERED: ALBUTEROL SO4 2.5/IPRATROPIUM 0.5 INH SOL 3 ML VIAL.NEB. NEB ONE ×2 (01:00)
[2021-08-26 15:07] LABS: SARS-CoV-2 NAA Not Detected (Not Detected)
== END 2021-08-25 02:47 | disposition home or self-care (01) ==
LOC: FER 00:22
PROC: 3E0F7GC Introduction of Other Therapeutic Substance into Respiratory Tract, Via Natural or Artificial Opening (ICD-10-PCS; principal; 2021-08-25)
DX: R05.9 Cough, unspecified (principal); J02.9 Acute pharyngitis, unspecified
CPT/HCPCS: 71045-TC-FY; 81025; 87651; 94640; 99284-25; C9803; U0003; U0005

== ENCOUNTER 2021-11-13 19:32 | Emergency (ER) | payer OTHER ==
[2021-11-13 19:44] VITALS: BP 118/82; PULSE 98; TEMP 98.7; BMI 30.2
[2021-11-13] MEDS ORDERED: ACETAMINOPHEN 500 MG TABLET (FP) PO ONE (19:55)
[2021-11-13] MEDS ORDERED: ACETAMINOPHEN 500 MG TABLET (FP) ONE (19:59)
== END 2021-11-13 20:12 | disposition home or self-care (01) ==
LOC: FER 19:32
DX: U07.1 COVID-19 (principal)
CPT/HCPCS: 99283-25

== ENCOUNTER 2022-10-04 22:46 | Emergency (ER) | payer OTHER ==
[2022-10-04 22:52] VITALS: BP 116/79; PULSE 87; RESP 16; TEMP 98.4; BMI 30.2
[2022-10-04] MEDS ORDERED: FLUORESCEIN NA 1 EA STRIP OU ONE (23:13)
[2022-10-04] MEDS ORDERED: FLUORESCEIN NA 1 EA STRIP ONE ×2 (23:14→23:15)
== END 2022-10-04 23:39 | disposition home or self-care (01) ==
LOC: FER 22:46
DX: H10.33 Unspecified acute conjunctivitis, bilateral (principal); H57.13 Ocular pain, bilateral; Z20.822 Contact with and (suspected) exposure to COVID-19
CPT/HCPCS: 0241U-QW; 99283-25

== ENCOUNTER 2022-11-13 22:32 | Emergency (ER) | payer OTHER ==
[2022-11-13 23:12] VITALS: BP 122/84; PULSE 107; RESP 18; TEMP 99.7; BMI 31.1
[2022-11-13] MEDS ORDERED: IBUPROFEN 600 MG TABLET (FP) PO ONE ×2 (23:14→23:30)
== END 2022-11-14 00:08 | disposition home or self-care (01) ==
LOC: FER 22:32
DX: L98.9 Disorder of the skin and subcutaneous tissue, unspecified (principal)
CPT/HCPCS: 99283-25

== ENCOUNTER 2023-11-24 15:56 | Emergency (ER) | payer OTHER ==
[2023-11-24 16:06] VITALS: BP 117/53; RESP 18; TEMP 98; BMI 32.3
[2023-11-24] MEDS ORDERED: ALBUTEROL SO4 2.5/IPRATROPIUM 0.5 INH SOL 3 ML VIAL.NEB. NEB ONE (16:31)
[2023-11-24] MEDS: ALBUTEROL SO4 2.5/IPRATROPIUM 0.5 INH SOL 3 ML VIAL.NEB. NEB SCH (16:34)
[2023-11-24 18:40] LABS: BASO % 0.1 % (0-2.0); HEMATOCRIT 38.4 % (32.4-45.2); HEMOGLOBIN 12.8 GM/dL (10.7-15.3); MCH 30.4 pg (25.7-33.7); MCHC 33.3 g/dl (32.0-36.0); MEAN CELL VOLUME 91.1 fl (80-96); MEAN PLT VOLUME 7.4 fl (7.5-11.1); MONO % 4.8 % (3.8-10.2); NEUT % 78.1 % (42.8-82.8); PLATELET COUNT 309 10^3/uL (134-434); RBC 4.22 M/mm3 (3.60-5.2); RDW 13.5 % (11.6-15.6); WHITE BLOOD COUNT 9.7 K/mm3 (4.0-10.0)
[2023-11-24 19:09] LABS: BLOOD UREA NITROGEN 9.7 mg/dL (7-18); CALCIUM 9.1 mg/dL (8.5-10.1)
[2023-11-24 19:20] LABS: CREATININE 0.6 mg/dL (0.55-1.3)
[2023-11-24 20:59] VITALS: PULSE 76
== END 2023-11-24 21:15 | disposition home or self-care (01) ==
LOC: JER 15:56
PROC: 3E033GC Introduction of Other Therapeutic Substance into Peripheral Vein, Percutaneous Approach (ICD-10-PCS; principal; 2023-11-24)
PROC: 3E0F7GC Introduction of Other Therapeutic Substance into Respiratory Tract, Via Natural or Artificial Opening (ICD-10-PCS; 2023-11-24)
DX: R05.1 Acute cough (principal); J40 Bronchitis, not specified as acute or chronic; R07.89 Other chest pain
CPT/HCPCS: 36415; 71046-TC-FY; 71275-TC; 80048; 84703; 85025; 99285-25; Q9967